=== PATIENT | male | born 1960 | race Caucasian/White ===

== ENCOUNTER 2018-09-07 05:58 | Emergency (ER) | payer OTHER ==
[2018-09-07 06:33] VITALS: BP 112/70; PULSE 72; TEMP 97.8; BMI 27.5
--- NOTE | 2018-09-07 07:17 | PDOC ---
History of Present Illness - General Chief Complaint: Injury Stated Complaint: INJURY,HEAD/LT FT Time Seen by Provider: 09/07/18 07:09 History Source: Patient Exam Limitations: No Limitations - History of Present Illness Initial Comments: 09/07/18 07:19 58M with a PMH of myasthenia gravis and small fiber neuropathy who presents to the ER after having a fall. The patient states that he was trying to go to the bathroom, when he urinated on the floor due to the small fiber neuropathy. When he went back to clean up, he slipped and fell on his head, also injuring his L foot. He denies syncope, but is unsure if he remembers everything. Denies lightheadedness, CP, SOB, palpitations, nausea, vomiting, changes in vision, new numbness, tingling, or weakness. Past History - Past Medical History Allergies/Adverse Reactions: Allergies Allergy/AdvReac Type Severity Reaction Status Date / Time Sulfa (Sulfonamide Allergy Severe Verified 09/07/18 09:09 Antibiotics) Home Medications: Ambulatory Orders Albuterol Sulfate Inhaler - [Ventolin HFA Inhaler -] 2 inh PO HS 02/23/13 GuaiFENesin [Mucinex] 1,200 mg PO BID 02/23/13 Levothyroxine [Synthroid -] 100 mcg PO DAILY 02/23/13 Mometasone/Formoterol [Dulera 200 Mcg/5 Mcg Inhaler] 13 gm IH BID 02/23/13 predniSONE [Deltasone -] 10 mg PO DAILY 02/23/13 Zolpidem Tartrate [Ambien] 10 mg PO HS 02/24/13 Montelukast Na [Singulair -] 10 mg PO HS #60 09/23/13 Cyanocobalamin [Vitamin B12 -] 5,000 mcg PO DAILY 11/19/13 Iron 18 mg PO DAILY 11/19/13 Loratadine [Claritin -] 10 mg PO DAILY 11/19/13 Multivitamins [Multivit ([facility] Formul[facility])] 1 tab PO DAILY 11/19/13 Omeprazole Magnesium [Prilosec (OTC)] 20 mg PO BID 11/19/13 Pyridostigmine [Mestinon Timespan] 180 mg PO BID 05/27/17 Pyridostigmine [Mestinon] 60 mg PO TID 05/27/17 Anemia: No Asthma: Yes Cancer: No Cardiac Disorders: No CVA: No COPD: Yes CHF: No Dementia: No Diabetes: No GI Disorders: Yes (ACID REFLUX) Disorders: No HTN: No Hypercholesterolemia: No Liver Disease: No Seizures: No Thyroid Disease: Yes (HYPOTHYROID) - Surgical History Abdominal Surgery: No Appendectomy: No Cardiac Surgery: No Cholecystectomy: No Lung Surgery: No Neurologic Surgery: No Orthopedic Surgery: Yes (FX LEFT ANKLE WITH HARDWARE) - Suicide/Smoking/Psychosocial Hx Smoking History: Never smoked Have you smoked in the past 12 months: No Hx Alcohol Use: Yes (SOCIALLY) Drug/Substance Use Hx: No Substance Use Type: Alcohol Hx Substance Use Treatment: No Review of Systems - Review of Systems Able to Perform ROS?: Yes Comments:: 09/07/18 07:26 GENERAL/CONSTITUTIONAL: + for fall. No fever or chills. No weakness. HEAD, EYES, EARS, NOSE AND THROAT: No change in vision. No ear pain or discharge. No sore throat. CARDIOVASCULAR: No chest pain, palpitations, or lightheadedness. RESPIRATORY: No cough, wheezing, shortness of breath, or hemoptysis. GASTROINTESTINAL: No abdominal pain, nausea, vomiting, diarrhea, or constipation. GENITOURINARY: No dysuria, frequency, hematuria, or change in urination. MUSCULOSKELETAL: + for L foot pain. No neck or back pain. SKIN: No rash or lesions. NEUROLOGIC: No headache, numbness, tingling, focal weakness, loss of consciousness, or change in strength/sensation. Is the patient limited [place] proficient: No *Physical Exam - Vital Signs Last Vital Signs Temp Pulse Resp BP Pulse Ox 97.8 F 72 20 112/70 96 09/07/18 06:05 09/07/18 06:05 09/07/18 06:05 09/07/18 06:05 09/07/18 06:05 - Physical Exam Comments: 09/07/18 07:26 GENERAL: Well developed, well nourished. Awake and alert. No acute distress. HEENT: Normocephalic. Hearing grossly normal. Moist mucous membranes. PERRLA, EOMI. No conjunctival pallor. Sclera are non-icteric. NECK: Supple. Full ROM. No JVD. CARDIOVASCULAR: Regular rate and rhythm. No murmurs, rubs, or gallops. PULMONARY: No evidence of respiratory distress. Lungs clear to auscultation bilaterally. No wheezing, rales or rhonchi. ABDOMINAL: Soft. Non-tender. Non-distended. MUSCULOSKELETAL: TTP over lateral dorsal foot with mild ecchymosis. Normal range of motion at all joints. EXTREMITIES: No cyanosis. No clubbing. No edema. No calf tenderness or swelling. SKIN: 2cm linear laceration on R occiput. Otherwise, warm and dry. Normal capillary refill. No rashes. No jaundice. NEUROLOGICAL: Alert, awake, appropriate. Cranial nerves 2-12 intact. No deficits to light touch and temperature in face, upper extremities and lower extremities. 5/5 strength in deltoids, biceps, triceps, quadriceps, hamstrings, and gastrocnemius. Normal speech. Gait is normal without ataxia. PSYCHIATRIC: Cooperative. Good eye contact. Appropriate mood and affect. Procedures - Laceration/Wound Repair Posterior Head Wound Length: to 2.5 cm Wound Explored: clean Wound's Depth, Shape: superficial, linear Irrigated w/ Saline: Yes Betadine Prep: No Anesthesia: 1% Lidocaine Amount of Anesthetic (ccs): 2 Wound Debrided: minimal Wound Repaired With: Polvadera (4.) Layer Closure: No Sterile Dressing Applied: Yes Splint Applied: No Sling Applied: No ED Treatment Course - RADIOLOGY Radiology Studies Ordered: Category Date Time Status ANKLE & FOOT-LEFT* [RAD] Stat Radiology 09/07/18 07:16 Ordered Medical Decision Making - Medical Decision Making 09/07/18 07:28 58M with a PMH of small fiber neuropathy and myasthenia gravis presents to the ER after having a slip and fall accident. Will image foot and head to r/o ICH. Will place nirmala and give tetanus as pt is unsure of last tetanus shot. 09/07/18 08:37 Polvadera placed in clean fashion w/ lidocaine. Pt tolerated procedure well. 4 nirmala placed in total. 09/07/18 09:14 Foot XR negative for acute fracture but does show swelling. 09/07/18 09:[address] negative. Pt informed of results and is ambulating with mild ataxia due to injured L foot. Given instructions on RICE and will d/c with PCP f/u and instructions to return in 7-10 days for staple removal. Pt agrees and understands. Pt safe for discharge. *DC/Admit/Observation/Transfer Diagnosis at time of Disposition: Laceration - Discharge Dispostion Disposition: HOME Condition at time of disposition: Stable Decision to Admit order: No - Referrals Referrals: Magdiel Garcia MD [Primary Care Provider] - - Patient Instructions Printed Discharge Instructions: DI for Laceration Repair -- Polvadera Additional Instructions: Your ER visit is not complete until your follow up with your primary care physician. Please follow up with your primary care physician in 1-2 days. Please return in 7-10 days for removal of your nirmala. Please keep the area clean and dry for 24 hours. After 24 hours, gently clean the area with soap and water. Return if you see spreading redness, pus or other drainage, or if you have worsening pain around your cut. Please return to the ER if you have any signs or symptoms of chest pain, shortness of breath, uncontrollable fever, chills, nausea, vomiting, numbness, tingling, or weakness in any part of your body, changes in vision, or slurred speech. Please return to the ER if symptoms persist, worsen, or new symptoms arise. - Post Discharge Activity
[2018-09-07] MEDS ORDERED: DIPHTH,PERTUSS(ACELL),TET 0.5 ML DISP.SYRIN IM ONE ×2 (07:29→08:15)
--- NOTE | 2018-09-07 08:02 | PDOC ---
Attending Attestation - Resident Resident Name: MathewSaeed carmona - ED Attending Attestation I have performed the following: I have examined & evaluated the patient, The case was reviewed & discussed with the resident, I agree w/resident's findings & plan, Exceptions are as noted - HPI HPI: 09/07/18 07:57 58yo male with hx of myasthenia gravis on mestinon and hx of neuropathy with a mechanical fall this AM. Pt states he was heading to the bathroom - states from his neuropathy he has a difficult time getting to the bathroom without losing control of his urine. States this is chronic. States he urinated on the floor. States he stepped in the urine accidentally and slipped, falling backwards and hitting his head. No loc. No neck or back pain. States his left foot twisted underneath him as he fell. States he was able to get up, but has pain to the foot and swelling. Pt denies cp/sob. No abd pain. No n/v/d. No dysuria. No gamble. Pt with a 3cm lac to the posterior scalp - no active bleeding. Tetanus is not utd. - Physicial Exam PE: 09/07/18 08:02 Gen: aaox3, nad head: 3cm lac to posterior scalp, no active bleeding heent: eomi, perrl, mmm neck: supple, no midline ttp, no stepoffs or deformities heart: +s1s2 reg lungs: cta b/l abd: soft, nt/nd, +bs ext: no c/c/e, L foot with swelling over the dorsum of the foot over 3rd, 4th, 5th metatarsals, ecchymosis over toes, no malleolus ttp, ttp along 4th met neuro: at baseline ms, neuro intact, muscle strength 5/5 UE and LE, sensation intact - Medical Decision Making 09/07/18 07:55 a/p: 58yo male with a mechanical slip and fall this am -pt states he has neuropathy and cannot always control his urine-urinated on the floor this am, went to clean it up and slipped and fell on the urine -twisted L foot and ankle, head injury - no loc -pt denies neck or back pain -pt with head lac - about 3cm in length- no active bleeding -will send for xray L foot - poss fx and head ct given closed head injury -pt neuro intact -will monitor and reassess 09/07/18 09:19 no fx on foot xray head ct pending resident repaired lac 09/07/18 09:[address] neg 09/07/18 09:45 pt stable for dc to home
== END 2018-09-07 10:13 | disposition home or self-care (01) ==
LOC: JER 05:58
PROC: 0HQ0XZZ Repair Scalp Skin, External Approach (ICD-10-PCS; principal; 2018-09-07)
PROC: 3E0234Z Introduction of Serum, Toxoid and Vaccine into Muscle, Percutaneous Approach (ICD-10-PCS; 2018-09-07)
DX: S01.01XA Laceration without foreign body of scalp, initial encounter (principal); W01.0XXA Fall on same level from slipping, tripping and stumbling without subsequent striking against object, initial encounter; Y93.E9 Activity, other interior property and clothing maintenance; Y92.012 Bathroom of single-family (private) house as the place of occurrence of the external cause; Y99.8 Other external cause status; G70.00 Myasthenia gravis without (acute) exacerbation; G62.9 Polyneuropathy, unspecified; J45.909 Unspecified asthma, uncomplicated; J44.9 Chronic obstructive pulmonary disease, unspecified; K21.9 Gastro-esophageal reflux disease without esophagitis; E03.9 Hypothyroidism, unspecified
CPT/HCPCS: 70450-TC; 73610-TC-LT-FY; 73630-TC-LT; 90715; 99282-25

== ENCOUNTER 2020-11-10 10:00 | Inpatient (IN) | payer OTHER ==
[2020-11-10 10:19] VITALS: BMI 29.3
[2020-11-10] MEDS ORDERED: DEXAMETHASONE SOD PHOSPHATE 4 MG/1 ML VIAL IVPUSH ONE (12:26)
[2020-11-10] MEDS ORDERED: DEXAMETHASONE SOD PHOSPHATE 4 MG/1 ML VIAL ONE ×2 (12:37→17:58)
[2020-11-10 13:04] LABS: HEMATOCRIT 38.7 % (35.4-49); HEMOGLOBIN 13.5 GM/dL (11.7-16.9); MCH 33.1 pg (25.7-33.7); MCHC 34.9 g/dl (32.0-35.9); MEAN PLT VOLUME 6.3 fl (7.5-11.1); PLATELET COUNT 291 10^3/uL (134-434); RBC 4.07 M/mm3 (4.00-5.60); RDW 14.5 % (11.9-15.9); WHITE BLOOD COUNT 11.5 K/mm3 (4.0-10.0)
[2020-11-10 13:13] LABS: INR 0.98 (0.83-1.09); PROTHROMBIN TIME (PATIENT) 11.9 SEC (9.7-13.0)
[2020-11-10 13:15] LABS: ACTIVATED PTT 23.8 SECONDS (25.2-36.5)
[2020-11-10 13:28] LABS: CHLORIDE 100 mmol/L (98-107); SODIUM 135 mmol/L (136-145)
[2020-11-10 13:30] LABS: ANION GAP 8 MMOL/L (8-16); BLOOD UREA NITROGEN 18.1 mg/dL (7-18); CALCIUM 8.4 mg/dL (8.5-10.1); CO2 26 mmol/L (21-32); GLUCOSE,RANDOM 148 mg/dL (74-106); MAGNESIUM 2.3 mg/dL (1.8-2.4)
[2020-11-10 13:31] LABS: ANISOCYTOSIS 1+; MACROCYTOSIS 1+; PLATELET ESTIMATE NORMAL
[2020-11-10 13:33] LABS: CREATININE 0.7 mg/dL (0.55-1.3); SGOT/AST 17 U/L (15-37); SGPT/ALT 33 U/L (13-61)
[2020-11-10 13:35] LABS: BILIRUBIN,TOTAL 0.5 mg/dL (0.2-1); TOT PROT 7.2 g/dl (6.4-8.2)
[2020-11-10 13:36] LABS: ALK PHOS 89 U/L (45-117)
[2020-11-10 13:39] LABS: N-TERMINAL BNP 27.8 pg/ml (5-125)
[2020-11-10] MEDS ORDERED: ALBUTEROL SO4 0.083% IH SOL 2.5 MG/3 ML VIAL.NEB. NEB PRN (16:30)
[2020-11-10] MEDS ORDERED: ZOLPIDEM TARTRATE 5 MG TABLET PO PRN (16:30)
[2020-11-10] MEDS ORDERED: ALBUTEROL SO4 HFA INHALER IH PRN (16:30)
[2020-11-10] MEDS: SODIUM CHLORIDE 1,000 ML IV SCH (16:35)
[2020-11-10 16:40] LABS: EPI CELLS 2 /uL (0-25.1); HYALINE CASTS 0 /uL (0-3.1); URINE APPEARANCE CLEAR; URINE BACTERIA 1 /uL (0-1359); URINE BILIRUBIN NEGATIVE (NEGATIVE); URINE COLOR YELLOW; URINE GLUCOSE (UA) NEGATIVE (NEGATIVE); URINE KETONE NEGATIVE (NEGATIVE); URINE LEUK ESTERASE NEGATIVE (NEGATIVE); URINE NITRITE NEGATIVE (NEGATIVE); URINE PROTEIN NEGATIVE (NEGATIVE); URINE RBC 16 /uL (0-23.9); URINE UROBILINOGEN 0.2 mg/dL (0.2-1.0); URINE WBC 2 /uL (0-25.8)
[2020-11-10] MEDS: ENOXAPARIN NA (PORCINE) 40 MG/0.4 ML DISP.SYRIN SQ SCH (16:50)
[2020-11-10] MEDS ORDERED: ENOXAPARIN NA (PORCINE) 40 MG/0.4 ML DISP.SYRIN SQ ONE (17:18)
[2020-11-10] MEDS: DEXAMETHASONE SOD PHOSPHATE 4 MG/1 ML VIAL IVPUSH SCH ×2 (18:05→22:35)
[2020-11-10] MEDS: BUDESONIDE/FORMETEROL FUMARATE 80/4.5 mcg INHALER IH SCH (22:35)
[2020-11-10] MEDS: MONTELUKAST NA 10 MG TABLET PO SCH (22:35)
[2020-11-11] MEDS ORDERED: COSYNTROPIN 0.25 MG VIAL IVPUSH ONE (06:00)
[2020-11-11] MEDS: LEVOTHYROXINE NA 75 MCG TABLET (FP) PO SCH (06:03)
[2020-11-11 09:29] LABS: HEMATOCRIT 38.3 % (35.4-49); HEMOGLOBIN 13.7 GM/dL (11.7-16.9); MCHC 35.7 g/dl (32.0-35.9); MEAN CELL VOLUME 95.2 fl (80-96); MEAN PLT VOLUME 6.6 fl (7.5-11.1); PLATELET COUNT 302 10^3/uL (134-434); RBC 4.02 M/mm3 (4.00-5.60); WHITE BLOOD COUNT 9.7 K/mm3 (4.0-10.0)
[2020-11-11] MEDS: LOSARTAN POTASSIUM 50 MG TABLET PO SCH ×2 (10:09→10:14)
[2020-11-11] MEDS: DEXAMETHASONE SOD PHOSPHATE 4 MG/1 ML VIAL IVPUSH SCH ×4 (10:10→21:41)
[2020-11-11] MEDS: PANTOPRAZOLE SODIUM 40 MG VIAL IVPUSH SCH (10:10)
[2020-11-11] MEDS: ENOXAPARIN NA (PORCINE) 40 MG/0.4 ML DISP.SYRIN SQ SCH (10:10)
[2020-11-11] MEDS: ESCITALOPRAM OXALATE 10 MG TABLET PO SCH ×2 (10:10→10:14)
[2020-11-11] MEDS: BUDESONIDE/FORMETEROL FUMARATE 80/4.5 mcg INHALER IH SCH ×2 (10:11→21:41)
[2020-11-11 10:21] LABS: CREATININE 0.6 mg/dL (0.55-1.3)
[2020-11-11 10:22] LABS: ALBUMIN 2.8 g/dl (3.4-5.0)
[2020-11-11] MEDS: ROFLUMILAST 500 MCG TABLET PO SCH (10:22)
[2020-11-11 10:27] LABS: BILIRUBIN,TOTAL 0.5 mg/dL (0.2-1); BLOOD UREA NITROGEN 15.2 mg/dL (7-18); CALCIUM 8.3 mg/dL (8.5-10.1); TOT PROT 6.9 g/dl (6.4-8.2)
[2020-11-11 10:34] LABS: ANISOCYTOSIS 1+; MACROCYTOSIS 0; PLATELET ESTIMATE NORMAL
[2020-11-11] MEDS: SODIUM CHLORIDE 1,000 ML IV SCH ×2 (17:39→21:41)
[2020-11-11] MEDS: MONTELUKAST NA 10 MG TABLET PO SCH (21:40)
[2020-11-12] MEDS: DEXAMETHASONE SOD PHOSPHATE 4 MG/1 ML VIAL IVPUSH SCH ×3 (06:12→21:17)
[2020-11-12] MEDS: LEVOTHYROXINE NA 75 MCG TABLET (FP) PO SCH (06:12)
[2020-11-12] MEDS ORDERED: PT OWN MED DRAWER 7, Y5N ONE (09:12)
[2020-11-12] MEDS: LOSARTAN POTASSIUM 50 MG TABLET PO SCH (09:14)
[2020-11-12] MEDS: ESCITALOPRAM OXALATE 10 MG TABLET PO SCH (09:14)
[2020-11-12] MEDS: ENOXAPARIN NA (PORCINE) 40 MG/0.4 ML DISP.SYRIN SQ SCH (09:14)
[2020-11-12] MEDS: PANTOPRAZOLE SODIUM 40 MG VIAL IVPUSH SCH (09:14)
[2020-11-12] MEDS: ROFLUMILAST 500 MCG TABLET PO SCH (09:14)
[2020-11-12] MEDS: BUDESONIDE/FORMETEROL FUMARATE 80/4.5 mcg INHALER IH SCH ×2 (09:15→21:18)
[2020-11-12 09:34] LABS: BASO % 0.1 % (0-2.0); HEMATOCRIT 37.6 % (35.4-49); HEMOGLOBIN 13.1 GM/dL (11.7-16.9); LYMPH % 4.4 % (8-40); MCH 33.5 pg (25.7-33.7); MCHC 34.8 g/dl (32.0-35.9); MEAN CELL VOLUME 96.3 fl (80-96); MEAN PLT VOLUME 6.5 fl (7.5-11.1); MONO % 4.6 % (3.8-10.2); NEUT % 90.9 % (42.8-82.8); PLATELET COUNT 272 10^3/uL (134-434); RBC 3.91 M/mm3 (4.00-5.60); RDW 14.1 % (11.9-15.9); WHITE BLOOD COUNT 9.3 K/mm3 (4.0-10.0)
[2020-11-12 09:54] LABS: CALCIUM 7.9 mg/dL (8.5-10.1)
[2020-11-12 09:58] LABS: CREATININE 0.6 mg/dL (0.55-1.3)
[2020-11-12] MEDS: ACETAMINOPHEN 325 MG TABLET (FP) PO SCH (15:00)
[2020-11-12] MEDS: diphenhydrAMINE HCL 25 MG CAPSULE (FP) PO SCH (15:01)
[2020-11-12] MEDS: PYRIDOSTIGMINE BROMIDE 60 MG TABLET PO SCH ×3 (15:06→21:17)
[2020-11-12] MEDS: PRO IMMUN GLOB IVPB SCH (15:40)
[2020-11-12] MEDS: [UNRECOGNIZED DRUG - OTHER] IVPB SCH (15:40)
[2020-11-12] MEDS: IMMUN GLOB IVPB SCH (15:40)
[2020-11-12] MEDS: PRO IVPB SCH (15:40)
[2020-11-12] MEDS: IGA IVPB SCH (15:40)
[2020-11-12] MEDS: SODIUM CHLORIDE 1,000 ML IV SCH (17:39)
[2020-11-12] MEDS: MONTELUKAST NA 10 MG TABLET PO SCH (21:18)
[2020-11-13] MEDS: DEXAMETHASONE SOD PHOSPHATE 4 MG/1 ML VIAL IVPUSH SCH ×3 (06:03→21:16)
[2020-11-13] MEDS: LEVOTHYROXINE NA 75 MCG TABLET (FP) PO SCH (06:04)
[2020-11-13] MEDS: SODIUM CHLORIDE 1,000 ML IV SCH ×3 (06:05→22:20)
[2020-11-13 08:28] LABS: HEMATOCRIT 36.6 % (35.4-49); HEMOGLOBIN 12.9 GM/dL (11.7-16.9); MCH 33.5 pg (25.7-33.7); MCHC 35.2 g/dl (32.0-35.9); MEAN CELL VOLUME 95.2 fl (80-96); MEAN PLT VOLUME 6.2 fl (7.5-11.1); PLATELET COUNT 268 10^3/uL (134-434); RBC 3.85 M/mm3 (4.00-5.60); RDW 14.3 % (11.9-15.9); WHITE BLOOD COUNT 9.2 K/mm3 (4.0-10.0)
[2020-11-13 08:47] LABS: CALCIUM 7.9 mg/dL (8.5-10.1)
[2020-11-13 08:48] LABS: BLOOD UREA NITROGEN 15.7 mg/dL (7-18)
[2020-11-13 08:51] LABS: CREATININE 0.8 mg/dL (0.55-1.3)
[2020-11-13] MEDS ORDERED: PT OWN MED DRAWER 7, Y5N ONE ×4 (10:01→20:52)
[2020-11-13] MEDS: ESCITALOPRAM OXALATE 10 MG TABLET PO SCH (10:03)
[2020-11-13] MEDS: ENOXAPARIN NA (PORCINE) 40 MG/0.4 ML DISP.SYRIN SQ SCH (10:03)
[2020-11-13] MEDS: ROFLUMILAST 500 MCG TABLET PO SCH (10:04)
[2020-11-13] MEDS: LOSARTAN POTASSIUM 50 MG TABLET PO SCH (10:04)
[2020-11-13] MEDS: PANTOPRAZOLE SODIUM 40 MG VIAL IVPUSH SCH (10:04)
[2020-11-13] MEDS: PYRIDOSTIGMINE BROMIDE 60 MG TABLET PO SCH ×4 (10:05→21:17)
[2020-11-13] MEDS: BUDESONIDE/FORMETEROL FUMARATE 80/4.5 mcg INHALER IH SCH ×2 (10:05→21:18)
[2020-11-13 11:04] LABS: ANISOCYTOSIS 0; HELMET CELLS 0; HOWELL-JOLLY BODIES 0; MACROCYTOSIS 0; OVALOCYTE 0; PLATELET ESTIMATE NORMAL; ROULEAU 0; SICKELED CELLS 0; TARGET CELLS 0; TEAR DROP CELLS 0; TOXIC GRANULATION 0
[2020-11-13] MEDS: diphenhydrAMINE HCL 25 MG CAPSULE (FP) PO SCH (14:15)
[2020-11-13] MEDS: ACETAMINOPHEN 325 MG TABLET (FP) PO SCH (14:15)
[2020-11-13] MEDS: PRO IMMUN GLOB IVPB SCH (14:54)
[2020-11-13] MEDS: PRO IVPB SCH (14:54)
[2020-11-13] MEDS: IMMUN GLOB IVPB SCH (14:54)
[2020-11-13] MEDS: [UNRECOGNIZED DRUG - OTHER] IVPB SCH (14:54)
[2020-11-13] MEDS: IGA IVPB SCH (14:54)
[2020-11-13] MEDS: MONTELUKAST NA 10 MG TABLET PO SCH (21:18)
[2020-11-13] MEDS: ZOLPIDEM TARTRATE 5 MG TABLET PO PRN (22:20)
[2020-11-14] MEDS: DEXAMETHASONE SOD PHOSPHATE 4 MG/1 ML VIAL IVPUSH SCH ×3 (05:59→21:12)
[2020-11-14] MEDS: LEVOTHYROXINE NA 75 MCG TABLET (FP) PO SCH (06:03)
[2020-11-14 07:41] LABS: BASO % 0.2 % (0-2.0); HEMATOCRIT 34.1 % (35.4-49); HEMOGLOBIN 12.2 GM/dL (11.7-16.9); LYMPH % 5.9 % (8-40); MCH 33.9 pg (25.7-33.7); MCHC 35.7 g/dl (32.0-35.9); MEAN CELL VOLUME 94.8 fl (80-96); MEAN PLT VOLUME 6.5 fl (7.5-11.1); NEUT % 86.9 % (42.8-82.8); PLATELET COUNT 243 10^3/uL (134-434); RBC 3.59 M/mm3 (4.00-5.60); RDW 14.5 % (11.9-15.9); WHITE BLOOD COUNT 8.2 K/mm3 (4.0-10.0)
[2020-11-14 08:07] LABS: BLOOD UREA NITROGEN 12.9 mg/dL (7-18)
[2020-11-14 08:08] LABS: CALCIUM 7.7 mg/dL (8.5-10.1)
[2020-11-14 08:13] LABS: CREATININE 0.6 mg/dL (0.55-1.3)
[2020-11-14] MEDS ORDERED: PT OWN MED DRAWER 7, Y5N ONE ×3 (09:16→21:14)
[2020-11-14] MEDS: ENOXAPARIN NA (PORCINE) 40 MG/0.4 ML DISP.SYRIN SQ SCH (09:19)
[2020-11-14] MEDS: PANTOPRAZOLE SODIUM 40 MG VIAL IVPUSH SCH (09:19)
[2020-11-14] MEDS: LOSARTAN POTASSIUM 50 MG TABLET PO SCH (09:20)
[2020-11-14] MEDS: ESCITALOPRAM OXALATE 10 MG TABLET PO SCH (09:20)
[2020-11-14] MEDS: ROFLUMILAST 500 MCG TABLET PO SCH (09:20)
[2020-11-14] MEDS: PYRIDOSTIGMINE BROMIDE 60 MG TABLET PO SCH ×4 (09:21→21:15)
[2020-11-14] MEDS: BUDESONIDE/FORMETEROL FUMARATE 80/4.5 mcg INHALER IH SCH ×2 (09:21→21:17)
[2020-11-14] MEDS ORDERED: HYDROCHLOROTHIAZIDE 25 MG TABLET (FP) PO SCH (11:00)
[2020-11-14] MEDS: diphenhydrAMINE HCL 25 MG CAPSULE (FP) PO SCH (14:07)
[2020-11-14] MEDS: ACETAMINOPHEN 325 MG TABLET (FP) PO SCH (14:07)
[2020-11-14] MEDS ORDERED: HYDROCHLOROTHIAZIDE 25 MG TABLET (FP) PO ONE (14:45)
[2020-11-14] MEDS ORDERED: diazePAM 2 MG TABLET PO ONE (14:45)
[2020-11-14] MEDS: PRO IMMUN GLOB IVPB SCH (15:12)
[2020-11-14] MEDS: IGA IVPB SCH (15:12)
[2020-11-14] MEDS: PRO IVPB SCH (15:12)
[2020-11-14] MEDS: [UNRECOGNIZED DRUG - OTHER] IVPB SCH (15:12)
[2020-11-14] MEDS: IMMUN GLOB IVPB SCH (15:12)
[2020-11-14] MEDS ORDERED: amLODIPine BESYLATE 5 MG TABLET (FP) PO ONE (17:45)
[2020-11-14] MEDS: ZOLPIDEM TARTRATE 5 MG TABLET PO PRN (21:11)
[2020-11-14] MEDS: MONTELUKAST NA 10 MG TABLET PO SCH (21:11)
[2020-11-15] MEDS: LEVOTHYROXINE NA 75 MCG TABLET (FP) PO SCH (06:02)
[2020-11-15 07:51] LABS: HEMATOCRIT 34.6 % (35.4-49); HEMOGLOBIN 12.5 GM/dL (11.7-16.9); MCH 34.3 pg (25.7-33.7); MEAN CELL VOLUME 95.3 fl (80-96); MEAN PLT VOLUME 6.5 fl (7.5-11.1); PLATELET COUNT 252 10^3/uL (134-434); RBC 3.63 M/mm3 (4.00-5.60); RDW 14.4 % (11.9-15.9); WHITE BLOOD COUNT 10.5 K/mm3 (4.0-10.0)
[2020-11-15 08:40] LABS: CALCIUM 8.1 mg/dL (8.5-10.1)
[2020-11-15 08:41] LABS: ALBUMIN 2.3 g/dl (3.4-5.0)
[2020-11-15 08:44] LABS: CREATININE 0.8 mg/dL (0.55-1.3)
[2020-11-15 08:45] LABS: BILIRUBIN,TOTAL 0.3 mg/dL (0.2-1)
[2020-11-15 08:47] LABS: TOT PROT 9.6 g/dl (6.4-8.2)
[2020-11-15] MEDS ORDERED: PT OWN MED DRAWER 7, Y5N ONE ×2 (09:54→21:09)
[2020-11-15] MEDS: ENOXAPARIN NA (PORCINE) 40 MG/0.4 ML DISP.SYRIN SQ SCH (09:58)
[2020-11-15] MEDS: ROFLUMILAST 500 MCG TABLET PO SCH (09:59)
[2020-11-15] MEDS: LOSARTAN POTASSIUM 50 MG TABLET PO SCH (09:59)
[2020-11-15] MEDS: ESCITALOPRAM OXALATE 10 MG TABLET PO SCH (09:59)
[2020-11-15] MEDS: PANTOPRAZOLE SODIUM 40 MG VIAL IVPUSH SCH (09:59)
[2020-11-15] MEDS: DEXAMETHASONE SOD PHOSPHATE 4 MG/1 ML VIAL IVPUSH SCH ×2 (09:59→21:22)
[2020-11-15] MEDS: HYDROCHLOROTHIAZIDE 25 MG TABLET (FP) PO SCH (09:59)
[2020-11-15] MEDS: PYRIDOSTIGMINE BROMIDE 60 MG TABLET PO SCH ×4 (10:01→21:22)
[2020-11-15] MEDS: BUDESONIDE/FORMETEROL FUMARATE 80/4.5 mcg INHALER IH SCH ×2 (10:30→22:20)
[2020-11-15 11:45] LABS: ANISOCYTOSIS 1+; MACROCYTOSIS 0; PLATELET ESTIMATE NORMAL
[2020-11-15] MEDS: MONTELUKAST NA 10 MG TABLET PO SCH (21:22)
[2020-11-15] MEDS: ZOLPIDEM TARTRATE 5 MG TABLET PO PRN (21:25)
[2020-11-16] MEDS: LEVOTHYROXINE NA 75 MCG TABLET (FP) PO SCH (06:39)
[2020-11-16] MEDS: ACETAMINOPHEN 325 MG TABLET (FP) PO PRN ×2 (08:22→21:20)
[2020-11-16 08:38] LABS: CALCIUM 7.9 mg/dL (8.5-10.1)
[2020-11-16 08:39] LABS: BLOOD UREA NITROGEN 20.2 mg/dL (7-18)
[2020-11-16 08:42] LABS: CREATININE 0.7 mg/dL (0.55-1.3)
[2020-11-16] MEDS ORDERED: PT OWN MED DRAWER 7, Y5N ONE ×4 (09:09→17:47)
[2020-11-16] MEDS: ENOXAPARIN NA (PORCINE) 40 MG/0.4 ML DISP.SYRIN SQ SCH (09:14)
[2020-11-16] MEDS: ESCITALOPRAM OXALATE 10 MG TABLET PO SCH (09:15)
[2020-11-16] MEDS: HYDROCHLOROTHIAZIDE 25 MG TABLET (FP) PO SCH (09:15)
[2020-11-16] MEDS: DEXAMETHASONE SOD PHOSPHATE 4 MG/1 ML VIAL IVPUSH SCH ×2 (09:15→21:20)
[2020-11-16] MEDS: PANTOPRAZOLE SODIUM 40 MG VIAL IVPUSH SCH (09:15)
[2020-11-16] MEDS: PYRIDOSTIGMINE BROMIDE 60 MG TABLET PO SCH ×3 (09:15→17:49)
[2020-11-16] MEDS: LOSARTAN POTASSIUM 50 MG TABLET PO SCH (09:15)
[2020-11-16] MEDS ORDERED: amLODIPine BESYLATE 5 MG TABLET (FP) PO SCH (10:00)
[2020-11-16] MEDS: ROFLUMILAST 500 MCG TABLET PO SCH (10:54)
[2020-11-16] MEDS: BUDESONIDE/FORMETEROL FUMARATE 80/4.5 mcg INHALER IH SCH ×2 (10:54→21:25)
[2020-11-16] MEDS ORDERED: amLODIPine BESYLATE 5 MG TABLET (FP) PO ONE (11:15)
[2020-11-16] MEDS: MONTELUKAST NA 10 MG TABLET PO SCH (21:20)
[2020-11-16] MEDS: ZOLPIDEM TARTRATE 5 MG TABLET PO PRN (21:24)
[2020-11-17] MEDS: LEVOTHYROXINE NA 75 MCG TABLET (FP) PO SCH (06:00)
[2020-11-17 09:13] LABS: CALCIUM 8.3 mg/dL (8.5-10.1)
[2020-11-17 09:14] LABS: BLOOD UREA NITROGEN 15.6 mg/dL (7-18)
[2020-11-17 09:17] LABS: CREATININE 0.7 mg/dL (0.55-1.3)
[2020-11-17] MEDS ORDERED: PT OWN MED DRAWER 7, Y5N ONE ×4 (09:37→20:55)
[2020-11-17] MEDS: DEXAMETHASONE SOD PHOSPHATE 4 MG/1 ML VIAL IVPUSH SCH ×2 (09:39→21:04)
[2020-11-17] MEDS: HYDROCHLOROTHIAZIDE 25 MG TABLET (FP) PO SCH (09:40)
[2020-11-17] MEDS: ESCITALOPRAM OXALATE 10 MG TABLET PO SCH (09:40)
[2020-11-17] MEDS: amLODIPine BESYLATE 10 MG TABLET (FP) PO SCH (09:40)
[2020-11-17] MEDS: ENOXAPARIN NA (PORCINE) 40 MG/0.4 ML DISP.SYRIN SQ SCH (09:40)
[2020-11-17] MEDS: LOSARTAN POTASSIUM 50 MG TABLET PO SCH (09:40)
[2020-11-17] MEDS: PANTOPRAZOLE SODIUM 40 MG VIAL IVPUSH SCH (09:40)
[2020-11-17] MEDS: ROFLUMILAST 500 MCG TABLET PO SCH (09:41)
[2020-11-17] MEDS: PYRIDOSTIGMINE BROMIDE 60 MG TABLET PO SCH ×4 (09:41→21:03)
[2020-11-17] MEDS: BUDESONIDE/FORMETEROL FUMARATE 80/4.5 mcg INHALER IH SCH ×2 (10:14→21:04)
[2020-11-17] MEDS: ACETAMINOPHEN 325 MG TABLET (FP) PO PRN (14:56)
[2020-11-17] MEDS: MONTELUKAST NA 10 MG TABLET PO SCH (21:04)
[2020-11-17] MEDS: ZOLPIDEM TARTRATE 5 MG TABLET PO PRN (21:04)
[2020-11-18] MEDS: LEVOTHYROXINE NA 75 MCG TABLET (FP) PO SCH (06:47)
[2020-11-18] MEDS: PYRIDOSTIGMINE BROMIDE 60 MG TABLET PO SCH ×5 (07:54→22:06)
[2020-11-18] MEDS ORDERED: PT OWN MED DRAWER 7, Y5N ONE ×2 (10:26→21:56)
[2020-11-18] MEDS: amLODIPine BESYLATE 10 MG TABLET (FP) PO SCH (10:37)
[2020-11-18] MEDS: ENOXAPARIN NA (PORCINE) 40 MG/0.4 ML DISP.SYRIN SQ SCH (10:37)
[2020-11-18] MEDS: HYDROCHLOROTHIAZIDE 25 MG TABLET (FP) PO SCH (10:37)
[2020-11-18] MEDS: LOSARTAN POTASSIUM 50 MG TABLET PO SCH (10:37)
[2020-11-18] MEDS: ESCITALOPRAM OXALATE 10 MG TABLET PO SCH (10:38)
[2020-11-18] MEDS: ROFLUMILAST 500 MCG TABLET PO SCH (10:39)
[2020-11-18] MEDS: DEXAMETHASONE SOD PHOSPHATE 4 MG/1 ML VIAL IVPUSH SCH ×2 (10:39→22:04)
[2020-11-18] MEDS: ERGOCALCIFEROL (VIT D2) 50,000 UNIT (1.25 MG) CAPSULE PO SCH (10:40)
[2020-11-18] MEDS: PANTOPRAZOLE SODIUM 40 MG VIAL IVPUSH SCH (10:41)
[2020-11-18] MEDS ORDERED: IPRATROPIUM BR 0.02% 0.5 MG/2.5 ML VIAL.NEB. NEB PRN (10:42)
[2020-11-18] MEDS: BUDESONIDE/FORMETEROL FUMARATE 80/4.5 mcg INHALER IH SCH ×2 (10:42→22:15)
[2020-11-18] MEDS ORDERED: guaiFENesin 200 MG/10 ML 10 ML UNIT-DOSE CUPS PO PRN (10:45)
[2020-11-18] MEDS: ALBUTEROL SO4 2.5/IPRATROPIUM 0.5 INH SOL 3 ML VIAL.NEB. NEB SCH ×3 (11:42→20:34)
[2020-11-18 11:48] LABS: CALCIUM 8.2 mg/dL (8.5-10.1)
[2020-11-18 11:49] LABS: ALBUMIN 2.3 g/dl (3.4-5.0); BLOOD UREA NITROGEN 21.4 mg/dL (7-18)
[2020-11-18 11:52] LABS: CREATININE 0.7 mg/dL (0.55-1.3)
[2020-11-18 11:53] LABS: BILIRUBIN,TOTAL 0.5 mg/dL (0.2-1)
[2020-11-18 11:54] LABS: TOT PROT 8.4 g/dl (6.4-8.2)
[2020-11-18] MEDS: MORPHINE SULFATE 2 MG/ML VIAL IVPUSH PRN ×2 (12:01→22:02)
[2020-11-18] MEDS ORDERED: POTASSIUM CHLORIDE TABS 20 MEQ TABLET.ER (FP) PO ONE (16:28)
[2020-11-18] MEDS: MONTELUKAST NA 10 MG TABLET PO SCH (22:06)
[2020-11-18] MEDS: ZOLPIDEM TARTRATE 5 MG TABLET PO PRN (22:06)
[2020-11-19] MEDS: LEVOTHYROXINE NA 75 MCG TABLET (FP) PO SCH (07:03)
[2020-11-19] MEDS: ALBUTEROL SO4 2.5/IPRATROPIUM 0.5 INH SOL 3 ML VIAL.NEB. NEB SCH ×4 (07:23→20:00)
[2020-11-19 07:48] LABS: HEMATOCRIT 37.7 % (35.4-49); HEMOGLOBIN 13.4 GM/dL (11.7-16.9); MCHC 35.5 g/dl (32.0-35.9); MEAN PLT VOLUME 6.3 fl (7.5-11.1); PLATELET COUNT 190 10^3/uL (134-434); RBC 3.93 M/mm3 (4.00-5.60); RDW 14.5 % (11.9-15.9); WHITE BLOOD COUNT 8.8 K/mm3 (4.0-10.0)
[2020-11-19] MEDS ORDERED: PT OWN MED DRAWER 7, Y5N ONE ×2 (09:35→21:04)
[2020-11-19] MEDS: ENOXAPARIN NA (PORCINE) 40 MG/0.4 ML DISP.SYRIN SQ SCH (09:40)
[2020-11-19] MEDS: PANTOPRAZOLE 40 MG TABLET PO SCH (09:40)
[2020-11-19] MEDS: amLODIPine BESYLATE 10 MG TABLET (FP) PO SCH (09:41)
[2020-11-19] MEDS: ESCITALOPRAM OXALATE 10 MG TABLET PO SCH (09:41)
[2020-11-19] MEDS: ROFLUMILAST 500 MCG TABLET PO SCH (09:41)
[2020-11-19] MEDS: LOSARTAN POTASSIUM 50 MG TABLET PO SCH (09:42)
[2020-11-19] MEDS: HYDROCHLOROTHIAZIDE 25 MG TABLET (FP) PO SCH (09:42)
[2020-11-19] MEDS: BUDESONIDE/FORMETEROL FUMARATE 80/4.5 mcg INHALER IH SCH ×2 (09:42→21:28)
[2020-11-19] MEDS: PYRIDOSTIGMINE BROMIDE 60 MG TABLET PO SCH ×4 (09:42→21:27)
[2020-11-19] MEDS: MORPHINE SULFATE 2 MG/ML VIAL IVPUSH PRN ×3 (09:54→22:16)
[2020-11-19] MEDS ORDERED: DEXAMETHASONE SOD PHOSPHATE 4 MG/1 ML VIAL IVPUSH SCH (10:00)
[2020-11-19 10:50] LABS: ANISOCYTOSIS 1+; MACROCYTOSIS 0; OVALOCYTE 1+; PLATELET ESTIMATE NORMAL
[2020-11-19] MEDS: predniSONE 20 MG TABLET (UD) PO SCH (11:39)
[2020-11-19] MEDS: ACETAMINOPHEN 325 MG TABLET (FP) PO PRN (21:27)
[2020-11-19] MEDS: MONTELUKAST NA 10 MG TABLET PO SCH (21:28)
[2020-11-19] MEDS ORDERED: ZOLPIDEM TARTRATE 5 MG TABLET PO ONE (22:00)
[2020-11-20] MEDS ORDERED: POTASSIUM CHLORIDE ORAL LIQUID 20 MEQ/15 ML PO ONE (04:47)
[2020-11-20] MEDS: LEVOTHYROXINE NA 75 MCG TABLET (FP) PO SCH (06:08)
[2020-11-20] MEDS: GABAPENTIN 300 MG CAPSULE PO SCH ×3 (06:08→21:52)
[2020-11-20] MEDS: ACETAMINOPHEN 325 MG TABLET (FP) PO PRN (06:09)
[2020-11-20] MEDS: ALBUTEROL SO4 2.5/IPRATROPIUM 0.5 INH SOL 3 ML VIAL.NEB. NEB SCH ×4 (07:40→20:00)
[2020-11-20] MEDS ORDERED: PT OWN MED DRAWER 7, Y5N ONE (09:02)
[2020-11-20] MEDS: BACLOFEN 10 MG TABLET (FP) PO SCH ×3 (09:04→21:52)
[2020-11-20] MEDS: predniSONE 20 MG TABLET (UD) PO SCH (09:09)
[2020-11-20] MEDS: ESCITALOPRAM OXALATE 10 MG TABLET PO SCH (09:10)
[2020-11-20] MEDS: PANTOPRAZOLE 40 MG TABLET PO SCH (09:10)
[2020-11-20] MEDS: amLODIPine BESYLATE 10 MG TABLET (FP) PO SCH (09:10)
[2020-11-20] MEDS: LOSARTAN POTASSIUM 50 MG TABLET PO SCH (09:10)
[2020-11-20] MEDS: PYRIDOSTIGMINE BROMIDE 60 MG TABLET PO SCH ×4 (09:11→21:47)
[2020-11-20] MEDS: BUDESONIDE/FORMETEROL FUMARATE 80/4.5 mcg INHALER IH SCH ×2 (09:11→21:52)
[2020-11-20] MEDS: ROFLUMILAST 500 MCG TABLET PO SCH (09:11)
[2020-11-20] MEDS: ENOXAPARIN NA (PORCINE) 40 MG/0.4 ML DISP.SYRIN SQ SCH (09:11)
[2020-11-20] MEDS ORDERED: MORPHINE SULFATE 2 MG/ML VIAL IVPUSH ONE (09:15)
[2020-11-20] MEDS: POLYETHYLENE GLYCOL (HEALTHYLAX) 3350 17 GM PACKET PO SCH (10:58)
[2020-11-20 11:56] LABS: HEMATOCRIT 37.4 % (35.4-49); HEMOGLOBIN 13.1 GM/dL (11.7-16.9); MCH 33.5 pg (25.7-33.7); MCHC 34.9 g/dl (32.0-35.9); MEAN CELL VOLUME 95.9 fl (80-96); MEAN PLT VOLUME 6.5 fl (7.5-11.1); PLATELET COUNT 164 10^3/uL (134-434); RDW 14.8 % (11.9-15.9); WHITE BLOOD COUNT 9.6 K/mm3 (4.0-10.0)
[2020-11-20 12:19] LABS: CREATININE 0.6 mg/dL (0.55-1.3)
[2020-11-20 12:20] LABS: ANISOCYTOSIS 0; MACROCYTOSIS 0; PLATELET ESTIMATE NORMAL
[2020-11-20] MEDS ORDERED: BACLOFEN 10 MG TABLET (FP) PO SCH (14:00)
[2020-11-20] MEDS: oxyCODONE HCL 5 MG TABLET PO PRN (14:09)
[2020-11-20] MEDS ORDERED: CYCLOBENZAPRINE HCL 5 MG TABLET PO PRN (17:04)
[2020-11-20] MEDS ORDERED: ASPIRIN 325 MG TABLET PO ONE (18:30)
[2020-11-20] MEDS: ZOLPIDEM TARTRATE 5 MG TABLET PO PRN (21:52)
[2020-11-20] MEDS: MONTELUKAST NA 10 MG TABLET PO SCH (21:52)
[2020-11-21] MEDS: LEVOTHYROXINE NA 75 MCG TABLET (FP) PO SCH (06:07)
[2020-11-21] MEDS: GABAPENTIN 300 MG CAPSULE PO SCH ×3 (06:07→21:31)
[2020-11-21] MEDS: ALBUTEROL SO4 2.5/IPRATROPIUM 0.5 INH SOL 3 ML VIAL.NEB. NEB SCH ×4 (07:32→20:35)
[2020-11-21] MEDS: ROFLUMILAST 500 MCG TABLET PO SCH ×2 (08:56→09:14)
[2020-11-21] MEDS: oxyCODONE HCL 5 MG TABLET PO PRN ×2 (08:57→15:16)
[2020-11-21] MEDS: predniSONE 20 MG TABLET (UD) PO SCH ×2 (08:58→09:14)
[2020-11-21] MEDS: LOSARTAN POTASSIUM 50 MG TABLET PO SCH ×2 (08:58→09:14)
[2020-11-21] MEDS: PYRIDOSTIGMINE BROMIDE 60 MG TABLET PO SCH ×4 (08:59→21:35)
[2020-11-21] MEDS: ENOXAPARIN NA (PORCINE) 40 MG/0.4 ML DISP.SYRIN SQ SCH (09:00)
[2020-11-21] MEDS: ESCITALOPRAM OXALATE 10 MG TABLET PO SCH (09:01)
[2020-11-21] MEDS: BACLOFEN 10 MG TABLET (FP) PO SCH ×2 (09:02→21:31)
[2020-11-21] MEDS: amLODIPine BESYLATE 10 MG TABLET (FP) PO SCH (09:02)
[2020-11-21] MEDS: ASPIRIN COATED 81 MG TABLET.EC PO SCH (09:03)
[2020-11-21] MEDS: PANTOPRAZOLE 40 MG TABLET PO SCH (09:05)
[2020-11-21] MEDS: POLYETHYLENE GLYCOL (HEALTHYLAX) 3350 17 GM PACKET PO SCH (09:05)
[2020-11-21] MEDS: BUDESONIDE/FORMETEROL FUMARATE 80/4.5 mcg INHALER IH SCH ×2 (09:05→21:41)
[2020-11-21] MEDS ORDERED: CYCLOBENZAPRINE HCL 10 MG TABLET (FP) PO ONE (09:17)
[2020-11-21 09:20] LABS: ALBUMIN 2.3 g/dl (3.4-5.0); BLOOD UREA NITROGEN 18.6 mg/dL (7-18); CALCIUM 7.8 mg/dL (8.5-10.1); MAGNESIUM 1.8 mg/dL (1.8-2.4)
[2020-11-21 09:23] LABS: CREATININE 0.5 mg/dL (0.55-1.3); PHOSPHOROUS 2.4 mg/dL (2.5-4.9)
[2020-11-21 09:24] LABS: BILIRUBIN,TOTAL 0.6 mg/dL (0.2-1)
[2020-11-21 09:25] LABS: TOT PROT 7.6 g/dl (6.4-8.2)
[2020-11-21] MEDS ORDERED: MORPHINE SULFATE 2 MG/ML VIAL ONE (09:28)
[2020-11-21] MEDS ORDERED: MORPHINE SULFATE 2 MG/ML VIAL IVPUSH ONE (09:45)
[2020-11-21] MEDS ORDERED: Methylnaltrexone Bromide 12 MG/0.6 ML KIT SQ PRN (11:22)
[2020-11-21] MEDS ORDERED: HYDROmorphone HCl 2 MG/ML VIAL ONE ×2 (12:47→13:07)
[2020-11-21] MEDS ORDERED: HYDROmorphone HCL CARPU-JECT 2 MG/1 ML DISP.SYRIN IVPUSH ONE (13:06)
[2020-11-21] MEDS: HYDROmorphone HCl 2 MG/ML VIAL IVPUSH PRN (13:45)
[2020-11-21] MEDS: ACETAMINOPHEN 325 MG TABLET (FP) PO PRN (15:16)
[2020-11-21] MEDS: MONTELUKAST NA 10 MG TABLET PO SCH (21:31)
[2020-11-21] MEDS: CYCLOBENZAPRINE HCL 10 MG TABLET (FP) PO SCH (21:31)
[2020-11-21] MEDS: ZOLPIDEM TARTRATE 5 MG TABLET PO PRN (21:31)
[2020-11-21] MEDS: METOPROLOL TARTRATE 25 MG TABLET (FP) PO SCH (21:31)
[2020-11-22] MEDS: GABAPENTIN 300 MG CAPSULE PO SCH ×3 (06:24→21:08)
[2020-11-22] MEDS: LEVOTHYROXINE NA 75 MCG TABLET (FP) PO SCH (06:25)
[2020-11-22] MEDS: HYDROmorphone HCl 2 MG/ML VIAL IVPUSH PRN (06:30)
[2020-11-22] MEDS: METOPROLOL TARTRATE 25 MG TABLET (FP) PO SCH ×3 (08:15→21:08)
[2020-11-22] MEDS: amLODIPine BESYLATE 10 MG TABLET (FP) PO SCH ×2 (08:15→09:02)
[2020-11-22] MEDS: predniSONE 20 MG TABLET (UD) PO SCH ×2 (08:15→09:01)
[2020-11-22] MEDS: BACLOFEN 10 MG TABLET (FP) PO SCH ×3 (08:15→21:08)
[2020-11-22] MEDS: PYRIDOSTIGMINE BROMIDE 60 MG TABLET PO SCH ×5 (08:16→21:09)
[2020-11-22] MEDS: CYCLOBENZAPRINE HCL 10 MG TABLET (FP) PO SCH ×3 (08:16→21:08)
[2020-11-22] MEDS: ESCITALOPRAM OXALATE 10 MG TABLET PO SCH ×2 (08:16→09:02)
[2020-11-22] MEDS: ASPIRIN COATED 81 MG TABLET.EC PO SCH ×2 (08:16→09:02)
[2020-11-22] MEDS: oxyCODONE HCL 5 MG TABLET PO PRN (08:17)
[2020-11-22] MEDS: ROFLUMILAST 500 MCG TABLET PO SCH ×2 (08:17→09:01)
[2020-11-22] MEDS: LOSARTAN POTASSIUM 50 MG TABLET PO SCH ×2 (08:18→09:01)
[2020-11-22] MEDS ORDERED: PT OWN MED DRAWER 7, Y5N ONE (08:33)
[2020-11-22] MEDS: ALBUTEROL SO4 2.5/IPRATROPIUM 0.5 INH SOL 3 ML VIAL.NEB. NEB SCH ×4 (08:55→20:22)
[2020-11-22] MEDS: ENOXAPARIN NA (PORCINE) 40 MG/0.4 ML DISP.SYRIN SQ SCH (09:02)
[2020-11-22] MEDS: POLYETHYLENE GLYCOL (HEALTHYLAX) 3350 17 GM PACKET PO SCH (09:02)
[2020-11-22] MEDS: BUDESONIDE/FORMETEROL FUMARATE 80/4.5 mcg INHALER IH SCH ×2 (09:02→21:10)
[2020-11-22] MEDS: PANTOPRAZOLE 40 MG TABLET PO SCH (09:02)
[2020-11-22] MEDS ORDERED: HYDROmorphone HCL CARPU-JECT 2 MG/1 ML DISP.SYRIN IVPB PRN (10:02)
[2020-11-22] MEDS ORDERED: HYDROmorphone HCl 2 MG/ML VIAL ONE (10:10)
[2020-11-22] MEDS ORDERED: oxyCODONE HCL 5 MG TABLET PO PRN (10:25)
[2020-11-22 14:16] LABS: CALCIUM 8.3 mg/dL (8.5-10.1)
[2020-11-22 14:20] LABS: CREATININE 0.8 mg/dL (0.55-1.3)
[2020-11-22] MEDS: HYDROmorphone HCl 2 MG/ML VIAL IVPB PRN (19:46)
[2020-11-22] MEDS: MONTELUKAST NA 10 MG TABLET PO SCH (21:08)
[2020-11-22] MEDS: ZOLPIDEM TARTRATE 5 MG TABLET PO PRN (21:08)
[2020-11-23] MEDS: GABAPENTIN 300 MG CAPSULE PO SCH ×3 (06:50→21:17)
[2020-11-23] MEDS: LEVOTHYROXINE NA 75 MCG TABLET (FP) PO SCH (06:50)
[2020-11-23] MEDS: ALBUTEROL SO4 2.5/IPRATROPIUM 0.5 INH SOL 3 ML VIAL.NEB. NEB SCH (08:25)
[2020-11-23] MEDS ORDERED: PT OWN MED DRAWER 7, Y5N ONE (09:51)
[2020-11-23] MEDS: HYDROmorphone HCl 2 MG/ML VIAL IVPB PRN (09:58)
[2020-11-23] MEDS: BACLOFEN 10 MG TABLET (FP) PO SCH ×2 (09:59→21:19)
[2020-11-23] MEDS: PANTOPRAZOLE 40 MG TABLET PO SCH (09:59)
[2020-11-23] MEDS: ASPIRIN COATED 81 MG TABLET.EC PO SCH (09:59)
[2020-11-23] MEDS: LOSARTAN POTASSIUM 50 MG TABLET PO SCH (09:59)
[2020-11-23] MEDS: predniSONE 20 MG TABLET (UD) PO SCH (09:59)
[2020-11-23] MEDS: POLYETHYLENE GLYCOL (HEALTHYLAX) 3350 17 GM PACKET PO SCH (10:00)
[2020-11-23] MEDS: ROFLUMILAST 500 MCG TABLET PO SCH (10:00)
[2020-11-23] MEDS: PYRIDOSTIGMINE BROMIDE 60 MG TABLET PO SCH ×4 (10:00→21:19)
[2020-11-23] MEDS: amLODIPine BESYLATE 10 MG TABLET (FP) PO SCH (10:00)
[2020-11-23] MEDS: ENOXAPARIN NA (PORCINE) 40 MG/0.4 ML DISP.SYRIN SQ SCH (10:00)
[2020-11-23] MEDS: METOPROLOL TARTRATE 25 MG TABLET (FP) PO SCH ×2 (10:00→21:19)
[2020-11-23] MEDS: ESCITALOPRAM OXALATE 10 MG TABLET PO SCH (10:00)
[2020-11-23] MEDS: CYCLOBENZAPRINE HCL 10 MG TABLET (FP) PO SCH (10:00)
[2020-11-23] MEDS: BUDESONIDE/FORMETEROL FUMARATE 80/4.5 mcg INHALER IH SCH ×2 (10:01→21:27)
[2020-11-23] MEDS ORDERED: KETOROLAC TROMETHAMINE 15 MG/ML VIAL IVPUSH ONE (13:30)
[2020-11-23] MEDS ORDERED: IOHEXOL 180 MG/1 ML ML IJ ONE (14:21)
[2020-11-23] MEDS ORDERED: BUPIVACAINE HCL/PF 0.75% 10 ML VIAL NR ONE (14:22)
[2020-11-23] MEDS ORDERED: LIDOCAINE HCL 1% PRESERVATIVE FREE - 30ML VIAL INF ONE (14:22)
[2020-11-23] MEDS ORDERED: ACETAMINOPHEN 325 MG TABLET (FP) PO STA (15:13)
[2020-11-23] MEDS ORDERED: BACLOFEN 10 MG TABLET (FP) PO ONE (15:51)
[2020-11-23] MEDS: oxyCODONE HCL 5 MG TABLET PO SCH ×2 (17:39→21:18)
[2020-11-23] MEDS: MONTELUKAST NA 10 MG TABLET PO SCH (21:18)
[2020-11-23] MEDS: ACETAMINOPHEN 500 MG TABLET (FP) PO SCH (21:20)
[2020-11-24] MEDS: oxyCODONE HCL 5 MG TABLET PO SCH ×2 (05:27→12:07)
[2020-11-24] MEDS: GABAPENTIN 300 MG CAPSULE PO SCH ×3 (05:27→22:36)
[2020-11-24] MEDS: ACETAMINOPHEN 500 MG TABLET (FP) PO SCH ×4 (05:28→22:37)
[2020-11-24] MEDS: BACLOFEN 10 MG TABLET (FP) PO SCH ×3 (05:29→22:36)
[2020-11-24] MEDS: LEVOTHYROXINE NA 75 MCG TABLET (FP) PO SCH (06:01)
[2020-11-24] MEDS ORDERED: HYDROmorphone HCl 2 MG/ML VIAL ONE (08:23)
[2020-11-24] MEDS ORDERED: HYDROmorphone HCl 2 MG/ML VIAL IVPUSH ONE (09:00)
[2020-11-24 09:22] LABS: BLOOD UREA NITROGEN 27.3 mg/dL (7-18); CALCIUM 7.8 mg/dL (8.5-10.1)
[2020-11-24 09:25] LABS: CREATININE 0.6 mg/dL (0.55-1.3)
[2020-11-24] MEDS: ESCITALOPRAM OXALATE 10 MG TABLET PO SCH (11:37)
[2020-11-24] MEDS: METOPROLOL TARTRATE 25 MG TABLET (FP) PO SCH ×2 (11:37→22:36)
[2020-11-24] MEDS: LOSARTAN POTASSIUM 50 MG TABLET PO SCH (11:37)
[2020-11-24] MEDS: ASPIRIN COATED 81 MG TABLET.EC PO SCH (11:37)
[2020-11-24] MEDS: PANTOPRAZOLE 40 MG TABLET PO SCH (11:37)
[2020-11-24] MEDS: predniSONE 20 MG TABLET (UD) PO SCH (11:38)
[2020-11-24] MEDS: POLYETHYLENE GLYCOL (HEALTHYLAX) 3350 17 GM PACKET PO SCH (11:38)
[2020-11-24] MEDS: ROFLUMILAST 500 MCG TABLET PO SCH (11:38)
[2020-11-24] MEDS: LIDOCAINE 5% TOPICAL PATCH TP SCH (11:38)
[2020-11-24] MEDS: BUDESONIDE/FORMETEROL FUMARATE 80/4.5 mcg INHALER IH SCH ×2 (11:40→22:37)
[2020-11-24] MEDS: PYRIDOSTIGMINE BROMIDE 60 MG TABLET PO SCH ×4 (11:40→22:38)
[2020-11-24] MEDS: oxyCODONE HCL 5 MG TABLET PO PRN ×2 (14:49→22:36)
[2020-11-24] MEDS ORDERED: LIDOCAINE PATCH REMOVAL MC SCH (22:00)
[2020-11-24] MEDS: MONTELUKAST NA 10 MG TABLET PO SCH (22:36)
[2020-11-25 06:24] VITALS: TEMP 98.5
[2020-11-25] MEDS: GABAPENTIN 300 MG CAPSULE PO SCH ×2 (06:26→14:52)
[2020-11-25] MEDS: BACLOFEN 10 MG TABLET (FP) PO SCH ×2 (06:27→14:52)
[2020-11-25] MEDS: ACETAMINOPHEN 500 MG TABLET (FP) PO SCH ×2 (06:27→14:52)
[2020-11-25] MEDS: LEVOTHYROXINE NA 75 MCG TABLET (FP) PO SCH (06:27)
[2020-11-25] MEDS: oxyCODONE HCL 5 MG TABLET PO PRN (06:29)
[2020-11-25] MEDS ORDERED: PT OWN MED DRAWER 7, Y5N ONE ×2 (09:08→14:50)
[2020-11-25] MEDS: ASPIRIN COATED 81 MG TABLET.EC PO SCH (09:14)
[2020-11-25] MEDS: predniSONE 20 MG TABLET (UD) PO SCH (09:14)
[2020-11-25] MEDS: ESCITALOPRAM OXALATE 10 MG TABLET PO SCH (09:14)
[2020-11-25] MEDS: PANTOPRAZOLE 40 MG TABLET PO SCH (09:15)
[2020-11-25] MEDS: METOPROLOL TARTRATE 25 MG TABLET (FP) PO SCH (09:15)
[2020-11-25] MEDS: ROFLUMILAST 500 MCG TABLET PO SCH (09:15)
[2020-11-25] MEDS: LIDOCAINE 5% TOPICAL PATCH TP SCH (09:15)
[2020-11-25] MEDS: ERGOCALCIFEROL (VIT D2) 50,000 UNIT (1.25 MG) CAPSULE PO SCH (09:15)
[2020-11-25] MEDS: LOSARTAN POTASSIUM 50 MG TABLET PO SCH (09:15)
[2020-11-25] MEDS: BUDESONIDE/FORMETEROL FUMARATE 80/4.5 mcg INHALER IH SCH (09:16)
[2020-11-25] MEDS: POLYETHYLENE GLYCOL (HEALTHYLAX) 3350 17 GM PACKET PO SCH (09:16)
[2020-11-25] MEDS: PYRIDOSTIGMINE BROMIDE 60 MG TABLET PO SCH ×2 (09:16→14:53)
[2020-11-25 12:07] VITALS: BP 113/69; PULSE 94
[2020-11-26] MEDS ORDERED: amLODIPine BESYLATE 5 MG TABLET (FP) PO SCH (10:00)
== END 2020-11-25 16:10 | disposition home or self-care (01) | DRG 644 ==
LOC: JER 10:00 → JERBED 12:22 → J6S 20:15 → J4W 11-20 16:39 → J4S 11-25 10:33 → J4W 11-25 10:35
PROVIDERS: ADMIT Family Medicine; ATTEND Family Medicine
PROC: 3E0R33Z Introduction of Anti-inflammatory into Spinal Canal, Percutaneous Approach (ICD-10-PCS; principal; 2020-11-23 12:30)
DX: E27.1 Primary adrenocortical insufficiency (principal); D80.1 Nonfamilial hypogammaglobulinemia; J84.9 Interstitial pulmonary disease, unspecified; M48.56XA Collapsed vertebra, not elsewhere classified, lumbar region, initial encounter for fracture; M48.54XA Collapsed vertebra, not elsewhere classified, thoracic region, initial encounter for fracture; E03.9 Hypothyroidism, unspecified; I10 Essential (primary) hypertension; G70.00 Myasthenia gravis without (acute) exacerbation; R26.81 Unsteadiness on feet; K21.9 Gastro-esophageal reflux disease without esophagitis; G62.9 Polyneuropathy, unspecified; J44.9 Chronic obstructive pulmonary disease, unspecified; F32.9 Major depressive disorder, single episode, unspecified; G47.00 Insomnia, unspecified; R31.9 Hematuria, unspecified; G47.33 Obstructive sleep apnea (adult) (pediatric); M54.5 Low back pain; G72.9 Myopathy, unspecified; D64.9 Anemia, unspecified; J45.40 Moderate persistent asthma, uncomplicated; M47.894 Other spondylosis, thoracic region
CPT/HCPCS: 36415; 70450-TC; 70553-TC; 71045-TC-FY; 71250-TC; 72157-TC; 72158-TC; 76000-TC-FY; 80048; 80053; 81003; 82024; 82533; 82550; 82634; 83735; 83880; 84100; 84436; 84443; 84484; 85025; 85610; 85730; 87086; 93005; 93010; 93306-TC; 94640; 94660; 94761; 97116-GP; 97161-GP; 99285-25; C9803; J0475; J0834; J1459; U0003; U0005

== ENCOUNTER 2021-03-23 13:54 | Inpatient (IN) | payer OTHER ==
[2021-03-23] MEDS ORDERED: AZITHROMYCIN 250 MG TABLET PO ONE (15:08)
[2021-03-23] MEDS ORDERED: ALBUTEROL SO4 2.5/IPRATROPIUM 0.5 INH SOL 3 ML VIAL.NEB. NEB ONE ×3 (15:08→15:57)
[2021-03-23] MEDS ORDERED: CEFTRIAXONE 1 GM in DEXTROSE 5%-WATER - 50 ML IVPB ONE (15:09)
[2021-03-23] MEDS ORDERED: CEFTRIAXONE 1 GM/50 ML BAG ONE (15:32)
[2021-03-23] MEDS ORDERED: AZITHROMYCIN 250 MG TABLET ONE (15:32)
[2021-03-23] MEDS ORDERED: CEFTRIAXONE 1,000 MG in DEXTROSE 5%-WATER - 50 ML IVPB ONE (16:13)
[2021-03-23 16:24] LABS: BASO % 0.1 % (0-2.0); HEMATOCRIT 38.6 % (35.4-49); HEMOGLOBIN 13.3 GM/dL (11.7-16.9); LYMPH % 8.2 % (8-40); MCH 31.1 pg (25.7-33.7); MCHC 34.4 g/dl (32.0-35.9); MEAN CELL VOLUME 90.4 fl (80-96); MEAN PLT VOLUME 6.8 fl (7.5-11.1); MONO % 5.7 % (3.8-10.2); PLATELET COUNT 294 10^3/uL (134-434); RBC 4.27 M/mm3 (4.00-5.60); RDW 14.6 % (11.9-15.9); WHITE BLOOD COUNT 5.8 K/mm3 (4.0-10.0)
[2021-03-23 16:53] LABS: CHLORIDE 100 mmol/L (98-107); SODIUM 135 mmol/L (136-145)
[2021-03-23 16:55] LABS: BLOOD UREA NITROGEN 17.6 mg/dL (7-18); CALCIUM 8.5 mg/dL (8.5-10.1)
[2021-03-23 16:56] LABS: ALBUMIN 3.2 g/dl (3.4-5.0); ANION GAP 9 MMOL/L (8-16); CO2 27 mmol/L (21-32); GLUCOSE,RANDOM 106 mg/dL (74-106)
[2021-03-23 16:58] LABS: CREATININE 1.2 mg/dL (0.55-1.3)
[2021-03-23 16:59] LABS: SGOT/AST 33 U/L (15-37); SGPT/ALT 44 U/L (13-61)
[2021-03-23 17:00] LABS: BILIRUBIN,TOTAL 0.2 mg/dL (0.2-1)
[2021-03-23 17:01] LABS: ALK PHOS 79 U/L (45-117)
[2021-03-23 17:02] LABS: LDH 328 U/L (87-246)
[2021-03-23] MEDS ORDERED: LACTATED RINGERS SOLUTION 1000 ML INFUS.BAG IV ONE (17:07)
[2021-03-23 20:25] LABS: ARTERIAL BLOOD GAS BASE EXCESS 4.7 mmol/L (-2-2); ARTERIAL BLOOD GAS PO2 83.4 mmHg (80-100); ARTERIAL BLOOD GAS pH 7.499 (7.350-7.450)
[2021-03-23 20:26] LABS: ALLENS TEST POSITIVE
[2021-03-23] MEDS ORDERED: PYRIDOSTIGMINE BROMIDE 60 MG TABLET PO ONE (21:00)
[2021-03-23] MEDS ORDERED: SODIUM CHLORIDE 1,000 ML IV SCH (21:30)
[2021-03-23] MEDS ORDERED: ALBUTEROL SO4 HFA INHALER IH PRN (21:44)
[2021-03-23] MEDS ORDERED: ALBUTEROL SO4 2.5/IPRATROPIUM 0.5 INH SOL 3 ML VIAL.NEB. NEB PRN (22:06)
[2021-03-23] MEDS: MONTELUKAST NA 10 MG TABLET PO SCH (22:14)
[2021-03-23] MEDS: ZOLPIDEM TARTRATE 5 MG TABLET PO PRN (22:38)
[2021-03-23] MEDS: VERAPAMIL HCL 80 MG TABLET PO ONE (22:41)
[2021-03-23 23:06] VITALS: BMI 28.4
[2021-03-24] MEDS ORDERED: REMDESIVIR 200 MG in SODIUM CHLORIDE 250 ML IVPB ONE
[2021-03-24] MEDS ORDERED: PYRIDOSTIGMINE BROMIDE 60 MG TABLET PO ONE (02:00)
[2021-03-24] MEDS: LEVOTHYROXINE NA 100 MCG TABLET (FP) PO SCH (06:20)
[2021-03-24 09:11] LABS: BASO % 0.2 % (0-2.0); EOS % 0.1 % (0-4.5); HEMATOCRIT 37.2 % (35.4-49); HEMOGLOBIN 12.4 GM/dL (11.7-16.9); LYMPH % 17.5 % (8-40); MCH 30.4 pg (25.7-33.7); MCHC 33.5 g/dl (32.0-35.9); MEAN CELL VOLUME 90.9 fl (80-96); MEAN PLT VOLUME 7.1 fl (7.5-11.1); NEUT % 78.2 % (42.8-82.8); PLATELET COUNT 287 10^3/uL (134-434); RBC 4.09 M/mm3 (4.00-5.60); RDW 14.6 % (11.9-15.9); WHITE BLOOD COUNT 4.8 K/mm3 (4.0-10.0)
[2021-03-24 09:23] LABS: CHLORIDE 101 mmol/L (98-107); SODIUM 136 mmol/L (136-145)
[2021-03-24 09:31] LABS: ALBUMIN 2.7 g/dl (3.4-5.0); BLOOD UREA NITROGEN 14.8 mg/dL (7-18); GLUCOSE,RANDOM 95 mg/dL (74-106); SGPT/ALT 37 U/L (13-61)
[2021-03-24 09:32] LABS: BILIRUBIN,TOTAL 0.2 mg/dL (0.2-1); CO2 24 mmol/L (21-32); CREATININE 0.7 mg/dL (0.55-1.3)
[2021-03-24 09:33] LABS: CALCIUM 7.5 mg/dL (8.5-10.1)
[2021-03-24 09:34] LABS: ALK PHOS 62 U/L (45-117); SGOT/AST 30 U/L (15-37)
[2021-03-24 09:35] LABS: ANION GAP 11 MMOL/L (8-16)
[2021-03-24] MEDS ORDERED: predniSONE 20 MG TABLET (UD) PO SCH (10:00)
[2021-03-24] MEDS ORDERED: PATIENT'S OWN MEDICATION (NON-FORMULARY) (Iron [Iron] 18 MG Tablet) PO SCH (10:00)
[2021-03-24] MEDS ORDERED: traMADol HCL 50 MG TABLET PO PRN (10:00)
[2021-03-24] MEDS ORDERED: metoPROLOL SUCCINATE 25 MG TAB.SR.24H (FP) PO SCH (10:00)
[2021-03-24] MEDS: CYANOCOBALAMIN 1,000 MCG TABLET (FP) PO SCH (10:19)
[2021-03-24] MEDS: LOSARTAN POTASSIUM 50 MG TABLET PO SCH (10:20)
[2021-03-24] MEDS: ESCITALOPRAM OXALATE 10 MG TABLET PO SCH (10:20)
[2021-03-24] MEDS: PANTOPRAZOLE 40 MG TABLET PO SCH (10:20)
[2021-03-24] MEDS: MULTIVITAMINS (DAILY MVI) TABLET (FP) PO SCH (10:20)
[2021-03-24] MEDS: guaiFENesin 600 MG TABLET.ER (FP) PO SCH ×2 (10:20→22:04)
[2021-03-24] MEDS: VERAPAMIL HCL 80 MG TABLET PO ONE (10:21)
[2021-03-24] MEDS: VERAPAMIL HCL 120 MG E.R. TABLET PO SCH (10:21)
[2021-03-24] MEDS: BUDESONIDE/FORMETEROL FUMARATE 160/4.5 mcg INHALER IH SCH ×2 (10:22→22:06)
[2021-03-24] MEDS: ACETAMINOPHEN 500 MG TABLET (FP) PO PRN ×2 (10:43→22:05)
[2021-03-24] MEDS ORDERED: POTASSIUM CHLORIDE ORAL LIQUID 20 MEQ/15 ML PO ONE (10:44)
[2021-03-24] MEDS ORDERED: ACETAMINOPHEN 325 MG TABLET (FP) PO PRN (10:45)
[2021-03-24] MEDS: DEXAMETHASONE SOD PHOSPHATE 10 MG/1 ML VIAL IVPUSH SCH (10:47)
[2021-03-24] MEDS: PYRIDOSTIGMINE BROMIDE 60 MG TABLET PO SCH ×3 (12:02→22:05)
[2021-03-24] MEDS: ALBUTEROL SO4 HFA INHALER IH SCH ×3 (12:02→22:00)
[2021-03-24] MEDS: ROFLUMILAST 500 MCG TABLET PO SCH (12:27)
[2021-03-24] MEDS ORDERED: MAGNESIUM OXIDE 400 MG TABLET (FP) PO ONE (21:23)
[2021-03-24] MEDS: ZOLPIDEM TARTRATE 5 MG TABLET PO PRN (22:04)
[2021-03-24] MEDS: POTASSIUM CHLORIDE TABS 20 MEQ TABLET.ER (FP) PO SCH (22:04)
[2021-03-24] MEDS: MONTELUKAST NA 10 MG TABLET PO SCH (22:05)
[2021-03-25] MEDS: REMDESIVIR 100 MG in SODIUM CHLORIDE 250 ML IVPB SCH ×2 (00:08→23:29)
[2021-03-25] MEDS: PYRIDOSTIGMINE BROMIDE 60 MG TABLET PO SCH ×4 (05:00→21:13)
[2021-03-25] MEDS: LEVOTHYROXINE NA 100 MCG TABLET (FP) PO SCH (06:57)
[2021-03-25] MEDS: ACETAMINOPHEN 500 MG TABLET (FP) PO PRN ×2 (07:03→21:10)
[2021-03-25 09:49] LABS: BLOOD UREA NITROGEN 10.2 mg/dL (7-18)
[2021-03-25 09:52] LABS: CREATININE 0.6 mg/dL (0.55-1.3); MAGNESIUM 1.9 mg/dL (1.8-2.4)
[2021-03-25] MEDS: guaiFENesin 600 MG TABLET.ER (FP) PO SCH ×2 (10:27→21:13)
[2021-03-25] MEDS: CYANOCOBALAMIN 1,000 MCG TABLET (FP) PO SCH (10:27)
[2021-03-25] MEDS: PANTOPRAZOLE 40 MG TABLET PO SCH (10:28)
[2021-03-25] MEDS: MULTIVITAMINS (DAILY MVI) TABLET (FP) PO SCH (10:28)
[2021-03-25] MEDS: DEXAMETHASONE SOD PHOSPHATE 10 MG/1 ML VIAL IVPUSH SCH (10:28)
[2021-03-25] MEDS: LOSARTAN POTASSIUM 50 MG TABLET PO SCH (10:28)
[2021-03-25] MEDS: ESCITALOPRAM OXALATE 10 MG TABLET PO SCH (10:28)
[2021-03-25] MEDS: POTASSIUM CHLORIDE TABS 20 MEQ TABLET.ER (FP) PO SCH ×2 (10:28→21:13)
[2021-03-25] MEDS: VERAPAMIL HCL 120 MG E.R. TABLET PO SCH (10:30)
[2021-03-25] MEDS: ALBUTEROL SO4 HFA INHALER IH SCH ×4 (10:30→21:10)
[2021-03-25] MEDS: ROFLUMILAST 500 MCG TABLET PO SCH (10:30)
[2021-03-25] MEDS: BUDESONIDE/FORMETEROL FUMARATE 160/4.5 mcg INHALER IH SCH ×2 (10:31→21:14)
[2021-03-25] MEDS: FLUTICASONE PROP 0.05% 16 GM NASAL SPRAY NS SCH (11:08)
[2021-03-25] MEDS: MONTELUKAST NA 10 MG TABLET PO SCH (21:13)
[2021-03-25] MEDS: ZOLPIDEM TARTRATE 5 MG TABLET PO PRN (21:24)
[2021-03-26] MEDS: PYRIDOSTIGMINE BROMIDE 60 MG TABLET PO SCH ×4 (03:28→21:45)
[2021-03-26] MEDS: LEVOTHYROXINE NA 100 MCG TABLET (FP) PO SCH (06:00)
[2021-03-26] MEDS: ALBUTEROL SO4 HFA INHALER IH SCH ×4 (08:07→21:00)
[2021-03-26] MEDS: VERAPAMIL HCL 120 MG E.R. TABLET PO SCH (09:28)
[2021-03-26] MEDS: LOSARTAN POTASSIUM 50 MG TABLET PO SCH (09:28)
[2021-03-26] MEDS: POTASSIUM CHLORIDE TABS 20 MEQ TABLET.ER (FP) PO SCH ×2 (09:29→21:44)
[2021-03-26] MEDS: ESCITALOPRAM OXALATE 10 MG TABLET PO SCH (09:29)
[2021-03-26] MEDS: ROFLUMILAST 500 MCG TABLET PO SCH (09:29)
[2021-03-26] MEDS: guaiFENesin 600 MG TABLET.ER (FP) PO SCH ×2 (09:30→21:44)
[2021-03-26] MEDS: CYANOCOBALAMIN 1,000 MCG TABLET (FP) PO SCH (09:31)
[2021-03-26] MEDS: MULTIVITAMINS (DAILY MVI) TABLET (FP) PO SCH (09:31)
[2021-03-26] MEDS: PANTOPRAZOLE 40 MG TABLET PO SCH (09:31)
[2021-03-26] MEDS: DEXAMETHASONE SOD PHOSPHATE 10 MG/1 ML VIAL IVPUSH SCH (09:33)
[2021-03-26] MEDS: BUDESONIDE/FORMETEROL FUMARATE 160/4.5 mcg INHALER IH SCH ×2 (09:33→21:45)
[2021-03-26 09:34] LABS: BASO % 0.2 % (0-2.0); HEMATOCRIT 37.3 % (35.4-49); HEMOGLOBIN 12.8 GM/dL (11.7-16.9); LYMPH % 16.4 % (8-40); MCH 30.8 pg (25.7-33.7); MCHC 34.3 g/dl (32.0-35.9); MEAN CELL VOLUME 89.7 fl (80-96); MEAN PLT VOLUME 7.1 fl (7.5-11.1); MONO % 4.6 % (3.8-10.2); NEUT % 78.8 % (42.8-82.8); PLATELET COUNT 401 10^3/uL (134-434); RBC 4.16 M/mm3 (4.00-5.60); RDW 14.4 % (11.9-15.9)
[2021-03-26] MEDS: FLUTICASONE PROP 0.05% 16 GM NASAL SPRAY NS SCH (09:34)
[2021-03-26 09:57] LABS: BLOOD UREA NITROGEN 8.8 mg/dL (7-18); CALCIUM 7.8 mg/dL (8.5-10.1)
[2021-03-26 10:00] LABS: CREATININE 0.6 mg/dL (0.55-1.3)
[2021-03-26] MEDS: MONTELUKAST NA 10 MG TABLET PO SCH (21:44)
[2021-03-26] MEDS: ACETAMINOPHEN 500 MG TABLET (FP) PO PRN (21:44)
[2021-03-26] MEDS: ZOLPIDEM TARTRATE 5 MG TABLET PO PRN (21:45)
[2021-03-27] MEDS: REMDESIVIR 100 MG in SODIUM CHLORIDE 250 ML IVPB SCH ×2 (01:00→23:21)
[2021-03-27] MEDS: PYRIDOSTIGMINE BROMIDE 60 MG TABLET PO SCH ×4 (04:56→21:15)
[2021-03-27] MEDS: LEVOTHYROXINE NA 100 MCG TABLET (FP) PO SCH (06:38)
[2021-03-27] MEDS: guaiFENesin 600 MG TABLET.ER (FP) PO SCH ×2 (09:40→21:15)
[2021-03-27] MEDS: CYANOCOBALAMIN 1,000 MCG TABLET (FP) PO SCH (09:40)
[2021-03-27] MEDS: LOSARTAN POTASSIUM 50 MG TABLET PO SCH (09:40)
[2021-03-27] MEDS: MULTIVITAMINS (DAILY MVI) TABLET (FP) PO SCH (09:40)
[2021-03-27] MEDS: PANTOPRAZOLE 40 MG TABLET PO SCH (09:40)
[2021-03-27] MEDS: POTASSIUM CHLORIDE TABS 20 MEQ TABLET.ER (FP) PO SCH ×2 (09:40→21:15)
[2021-03-27] MEDS: ESCITALOPRAM OXALATE 10 MG TABLET PO SCH (09:40)
[2021-03-27] MEDS: DEXAMETHASONE SOD PHOSPHATE 10 MG/1 ML VIAL IVPUSH SCH (09:41)
[2021-03-27] MEDS: VERAPAMIL HCL 120 MG E.R. TABLET PO SCH (09:42)
[2021-03-27] MEDS: ROFLUMILAST 500 MCG TABLET PO SCH (09:42)
[2021-03-27] MEDS: BUDESONIDE/FORMETEROL FUMARATE 160/4.5 mcg INHALER IH SCH ×2 (09:47→21:31)
[2021-03-27] MEDS: FLUTICASONE PROP 0.05% 16 GM NASAL SPRAY NS SCH (09:49)
[2021-03-27 09:55] LABS: BASO % 0.2 % (0-2.0); EOS % 0.1 % (0-4.5); HEMATOCRIT 38.3 % (35.4-49); HEMOGLOBIN 12.9 GM/dL (11.7-16.9); LYMPH % 17.6 % (8-40); MCH 30.4 pg (25.7-33.7); MCHC 33.6 g/dl (32.0-35.9); MEAN CELL VOLUME 90.5 fl (80-96); MONO % 8.8 % (3.8-10.2); NEUT % 73.3 % (42.8-82.8); PLATELET COUNT 529 10^3/uL (134-434); RBC 4.23 M/mm3 (4.00-5.60); RDW 14.5 % (11.9-15.9); WHITE BLOOD COUNT 5.2 K/mm3 (4.0-10.0)
[2021-03-27] MEDS: ALBUTEROL SO4 HFA INHALER IH SCH ×4 (10:04→21:32)
[2021-03-27 10:07] LABS: CALCIUM 8.3 mg/dL (8.5-10.1)
[2021-03-27 10:08] LABS: BLOOD UREA NITROGEN 16.9 mg/dL (7-18)
[2021-03-27 10:11] LABS: CREATININE 0.6 mg/dL (0.55-1.3)
[2021-03-27] MEDS ORDERED: ZOLPIDEM TARTRATE 5 MG TABLET PO ONE (20:11)
[2021-03-27] MEDS: MONTELUKAST NA 10 MG TABLET PO SCH (21:15)
[2021-03-28] MEDS: PYRIDOSTIGMINE BROMIDE 60 MG TABLET PO SCH ×4 (05:18→21:05)
[2021-03-28] MEDS: LEVOTHYROXINE NA 100 MCG TABLET (FP) PO SCH (06:13)
[2021-03-28 09:13] LABS: BASO % 0.1 % (0-2.0); HEMATOCRIT 38.5 % (35.4-49); HEMOGLOBIN 12.9 GM/dL (11.7-16.9); LYMPH % 12.9 % (8-40); MCH 30.5 pg (25.7-33.7); MCHC 33.4 g/dl (32.0-35.9); MEAN PLT VOLUME 6.8 fl (7.5-11.1); MONO % 9.3 % (3.8-10.2); NEUT % 77.7 % (42.8-82.8); PLATELET COUNT 533 10^3/uL (134-434); RBC 4.23 M/mm3 (4.00-5.60); RDW 14.7 % (11.9-15.9); WHITE BLOOD COUNT 6.2 K/mm3 (4.0-10.0)
[2021-03-28 09:40] LABS: BLOOD UREA NITROGEN 18.2 mg/dL (7-18)
[2021-03-28 09:43] LABS: CALCIUM 8.8 mg/dL (8.5-10.1)
[2021-03-28 09:44] LABS: CREATININE 0.7 mg/dL (0.55-1.3)
[2021-03-28] MEDS: ALBUTEROL SO4 HFA INHALER IH SCH ×5 (10:11→20:42)
[2021-03-28] MEDS: LOSARTAN POTASSIUM 50 MG TABLET PO SCH (10:12)
[2021-03-28] MEDS: VERAPAMIL HCL 120 MG E.R. TABLET PO SCH (10:12)
[2021-03-28] MEDS: ROFLUMILAST 500 MCG TABLET PO SCH (10:12)
[2021-03-28] MEDS: DEXAMETHASONE SOD PHOSPHATE 10 MG/1 ML VIAL IVPUSH SCH (10:13)
[2021-03-28] MEDS: FLUTICASONE PROP 0.05% 16 GM NASAL SPRAY NS SCH (10:13)
[2021-03-28] MEDS: POTASSIUM CHLORIDE TABS 20 MEQ TABLET.ER (FP) PO SCH ×2 (10:13→21:04)
[2021-03-28] MEDS: ESCITALOPRAM OXALATE 10 MG TABLET PO SCH (10:14)
[2021-03-28] MEDS: BUDESONIDE/FORMETEROL FUMARATE 160/4.5 mcg INHALER IH SCH ×2 (10:15→21:05)
[2021-03-28] MEDS: guaiFENesin 600 MG TABLET.ER (FP) PO SCH ×2 (10:15→21:04)
[2021-03-28] MEDS: PANTOPRAZOLE 40 MG TABLET PO SCH (10:15)
[2021-03-28] MEDS: CYANOCOBALAMIN 1,000 MCG TABLET (FP) PO SCH (10:16)
[2021-03-28] MEDS: MULTIVITAMINS (DAILY MVI) TABLET (FP) PO SCH (10:16)
[2021-03-28] MEDS: ACETAMINOPHEN 325 MG TABLET (FP) PO SCH (12:33)
[2021-03-28] MEDS: IMMUNE GLOBULIN (IgG) 20 GM VIAL IVPB SCH (13:24)
[2021-03-28] MEDS: LOPERAMIDE HCL 2 MG CAPSULE PO PRN ×2 (16:36→21:04)
[2021-03-28] MEDS: MONTELUKAST NA 10 MG TABLET PO SCH (21:04)
[2021-03-28] MEDS: ZOLPIDEM TARTRATE 5 MG TABLET PO PRN (22:04)
[2021-03-29] MEDS: PYRIDOSTIGMINE BROMIDE 60 MG TABLET PO SCH ×4 (04:00→21:44)
[2021-03-29] MEDS: LEVOTHYROXINE NA 100 MCG TABLET (FP) PO SCH (06:06)
[2021-03-29] MEDS: ALBUTEROL SO4 HFA INHALER IH SCH ×4 (10:00→21:44)
[2021-03-29] MEDS: ACETAMINOPHEN 325 MG TABLET (FP) PO SCH (10:00)
[2021-03-29] MEDS: CYANOCOBALAMIN 1,000 MCG TABLET (FP) PO SCH (10:01)
[2021-03-29] MEDS: LOSARTAN POTASSIUM 50 MG TABLET PO SCH (10:01)
[2021-03-29] MEDS: POTASSIUM CHLORIDE TABS 20 MEQ TABLET.ER (FP) PO SCH ×2 (10:01→21:43)
[2021-03-29] MEDS: guaiFENesin 600 MG TABLET.ER (FP) PO SCH ×2 (10:01→21:43)
[2021-03-29] MEDS: MULTIVITAMINS (DAILY MVI) TABLET (FP) PO SCH (10:01)
[2021-03-29] MEDS: VERAPAMIL HCL 120 MG E.R. TABLET PO SCH (10:02)
[2021-03-29] MEDS: ESCITALOPRAM OXALATE 10 MG TABLET PO SCH (10:02)
[2021-03-29] MEDS: DEXAMETHASONE SOD PHOSPHATE 10 MG/1 ML VIAL IVPUSH SCH (10:02)
[2021-03-29] MEDS: PANTOPRAZOLE 40 MG TABLET PO SCH (10:02)
[2021-03-29] MEDS: BUDESONIDE/FORMETEROL FUMARATE 160/4.5 mcg INHALER IH SCH ×2 (10:03→21:44)
[2021-03-29] MEDS: ROFLUMILAST 500 MCG TABLET PO SCH (10:03)
[2021-03-29] MEDS: FLUTICASONE PROP 0.05% 16 GM NASAL SPRAY NS SCH (10:03)
[2021-03-29 10:08] LABS: BLOOD UREA NITROGEN 19.2 mg/dL (7-18); CALCIUM 8.5 mg/dL (8.5-10.1)
[2021-03-29 10:12] LABS: CREATININE 0.7 mg/dL (0.55-1.3)
[2021-03-29] MEDS: LOPERAMIDE HCL 2 MG CAPSULE PO PRN ×2 (11:47→21:48)
[2021-03-29] MEDS: IMMUNE GLOBULIN (IgG) 20 GM VIAL IVPB SCH (12:10)
[2021-03-29] MEDS: ZOLPIDEM TARTRATE 5 MG TABLET PO PRN (21:43)
[2021-03-29] MEDS: MONTELUKAST NA 10 MG TABLET PO SCH (21:43)
[2021-03-30] MEDS: PYRIDOSTIGMINE BROMIDE 60 MG TABLET PO SCH ×4 (04:57→21:25)
[2021-03-30] MEDS: LEVOTHYROXINE NA 100 MCG TABLET (FP) PO SCH (06:12)
[2021-03-30 10:00] LABS: BASO % 0.2 % (0-2.0); HEMATOCRIT 35.6 % (35.4-49); HEMOGLOBIN 11.8 GM/dL (11.7-16.9); LYMPH % 13.5 % (8-40); MCH 30.3 pg (25.7-33.7); MCHC 33.2 g/dl (32.0-35.9); MEAN CELL VOLUME 91.3 fl (80-96); MEAN PLT VOLUME 6.9 fl (7.5-11.1); MONO % 11.9 % (3.8-10.2); NEUT % 74.4 % (42.8-82.8); PLATELET COUNT 540 10^3/uL (134-434); RBC 3.89 M/mm3 (4.00-5.60); RDW 14.8 % (11.9-15.9); WHITE BLOOD COUNT 7.8 K/mm3 (4.0-10.0)
[2021-03-30] MEDS: ROFLUMILAST 500 MCG TABLET PO SCH (10:26)
[2021-03-30] MEDS: CYANOCOBALAMIN 1,000 MCG TABLET (FP) PO SCH (10:26)
[2021-03-30] MEDS: guaiFENesin 600 MG TABLET.ER (FP) PO SCH ×2 (10:27→21:21)
[2021-03-30] MEDS: LOSARTAN POTASSIUM 50 MG TABLET PO SCH (10:27)
[2021-03-30] MEDS: ESCITALOPRAM OXALATE 10 MG TABLET PO SCH (10:27)
[2021-03-30] MEDS: MULTIVITAMINS (DAILY MVI) TABLET (FP) PO SCH (10:27)
[2021-03-30] MEDS: PANTOPRAZOLE 40 MG TABLET PO SCH (10:27)
[2021-03-30] MEDS: VERAPAMIL HCL 120 MG E.R. TABLET PO SCH ×2 (10:28→10:49)
[2021-03-30] MEDS: DEXAMETHASONE SOD PHOSPHATE 10 MG/1 ML VIAL IVPUSH SCH (10:28)
[2021-03-30] MEDS: FLUTICASONE PROP 0.05% 16 GM NASAL SPRAY NS SCH (10:28)
[2021-03-30] MEDS: BUDESONIDE/FORMETEROL FUMARATE 160/4.5 mcg INHALER IH SCH ×2 (10:32→22:23)
[2021-03-30] MEDS: ALBUTEROL SO4 HFA INHALER IH SCH ×4 (10:32→21:29)
[2021-03-30] MEDS: POTASSIUM CHLORIDE TABS 20 MEQ TABLET.ER (FP) PO SCH ×2 (10:32→21:22)
[2021-03-30 10:47] LABS: CALCIUM 8.6 mg/dL (8.5-10.1)
[2021-03-30 10:49] LABS: BLOOD UREA NITROGEN 19.5 mg/dL (7-18)
[2021-03-30 10:51] LABS: CREATININE 0.7 mg/dL (0.55-1.3)
[2021-03-30] MEDS: LOPERAMIDE HCL 2 MG CAPSULE PO PRN ×2 (10:55→21:21)
[2021-03-30] MEDS: ACETAMINOPHEN 325 MG TABLET (FP) PO SCH (11:33)
[2021-03-30] MEDS: IMMUNE GLOBULIN (IgG) 20 GM VIAL IVPB SCH (12:02)
[2021-03-30] MEDS: ZOLPIDEM TARTRATE 5 MG TABLET PO PRN (21:21)
[2021-03-30] MEDS: ACETAMINOPHEN 500 MG TABLET (FP) PO PRN (21:22)
[2021-03-30] MEDS: MONTELUKAST NA 10 MG TABLET PO SCH (22:22)
[2021-03-31] MEDS: PYRIDOSTIGMINE BROMIDE 60 MG TABLET PO SCH ×2 (03:55→10:18)
[2021-03-31] MEDS: LEVOTHYROXINE NA 100 MCG TABLET (FP) PO SCH (06:11)
[2021-03-31] MEDS: ALBUTEROL SO4 HFA INHALER IH SCH ×2 (08:17→12:20)
[2021-03-31] MEDS: PANTOPRAZOLE 40 MG TABLET PO SCH (10:17)
[2021-03-31] MEDS: VERAPAMIL HCL 120 MG E.R. TABLET PO SCH (10:17)
[2021-03-31] MEDS: ESCITALOPRAM OXALATE 10 MG TABLET PO SCH (10:17)
[2021-03-31] MEDS: guaiFENesin 600 MG TABLET.ER (FP) PO SCH ×2 (10:17→10:27)
[2021-03-31] MEDS: POTASSIUM CHLORIDE TABS 20 MEQ TABLET.ER (FP) PO SCH ×2 (10:17→10:26)
[2021-03-31] MEDS: FLUTICASONE PROP 0.05% 16 GM NASAL SPRAY NS SCH (10:18)
[2021-03-31] MEDS: BUDESONIDE/FORMETEROL FUMARATE 160/4.5 mcg INHALER IH SCH (10:18)
[2021-03-31] MEDS: LOSARTAN POTASSIUM 50 MG TABLET PO SCH (10:18)
[2021-03-31] MEDS: DEXAMETHASONE SOD PHOSPHATE 10 MG/1 ML VIAL IVPUSH SCH (10:18)
[2021-03-31] MEDS: ROFLUMILAST 500 MCG TABLET PO SCH (10:18)
[2021-03-31] MEDS: LOPERAMIDE HCL 2 MG CAPSULE PO PRN (10:45)
[2021-03-31 15:03] VITALS: BP 131/91; PULSE 102; TEMP 98
== END 2021-03-31 12:46 | disposition home or self-care (01) | DRG 177 ==
LOC: JER 13:54 → JERBED 18:35 → J8W 21:32
PROVIDERS: ADMIT Family Medicine; ATTEND Family Medicine
PROC: XW033E5 Introduction of Remdesivir Anti-infective into Peripheral Vein, Percutaneous Approach, New Technology Group 5 (ICD-10-PCS; principal; 2021-03-24)
DX: U07.1 COVID-19 (principal); J12.82 Pneumonia due to coronavirus disease 2019; J44.1 Chronic obstructive pulmonary disease with (acute) exacerbation; D80.1 Nonfamilial hypogammaglobulinemia; E27.1 Primary adrenocortical insufficiency; G70.00 Myasthenia gravis without (acute) exacerbation; E03.9 Hypothyroidism, unspecified; I10 Essential (primary) hypertension; G47.33 Obstructive sleep apnea (adult) (pediatric); R09.02 Hypoxemia; N40.0 Benign prostatic hyperplasia without lower urinary tract symptoms; D64.9 Anemia, unspecified
CPT/HCPCS: 36415; 36600; 71045-TC-FY; 71250-TC; 73630-TC-LT; 80048; 80053; 82024; 82533; 82550; 82728; 82803; 83615; 83735; 84443; 84484; 85025; 85379; 86140; 87040; 87070; 87205; 87324; 87449; 93005; 93010; 94660; 94761; 97116-GP; 97161-GP; 99285-25; C9399; C9803; J1100; J1561; U0003; U0005

== ENCOUNTER 2021-11-22 16:38 | Observation (INO) | payer OTHER ==
[2021-11-22 17:15] VITALS: BMI 29.9
[2021-11-22 19:53] LABS: BASO % 0.8 % (0-2.0); EOS % 0.5 % (0-4.5); HEMATOCRIT 28.2 % (35.4-49); HEMOGLOBIN 9.2 GM/dL (11.7-16.9); LYMPH % 7.8 % (8-40); MCH 30.9 pg (25.7-33.7); MCHC 32.4 g/dl (32.0-35.9); MEAN CELL VOLUME 95.2 fl (80-96); MEAN PLT VOLUME 7.1 fl (7.5-11.1); MONO % 7.3 % (3.8-10.2); NEUT % 83.6 % (42.8-82.8); PLATELET COUNT 523 10^3/uL (134-434); RBC 2.97 M/mm3 (4.00-5.60); URINE APPEARANCE CLEAR; URINE BILIRUBIN 1+ (NEGATIVE); URINE COLOR DK YELLOW; URINE GLUCOSE (UA) NEGATIVE (NEGATIVE); URINE KETONE TRACE (NEGATIVE); URINE LEUK ESTERASE NEGATIVE (NEGATIVE); URINE NITRITE NEGATIVE (NEGATIVE); URINE PROTEIN TRACE (NEGATIVE); WHITE BLOOD COUNT 7.8 K/mm3 (4.0-10.0)
[2021-11-22 20:27] LABS: ALBUMIN 3.3 g/dl (3.4-5.0); BLOOD UREA NITROGEN 16.4 mg/dL (7-18)
[2021-11-22 20:30] LABS: CREATININE 1.3 mg/dL (0.55-1.3)
[2021-11-22 20:32] LABS: BILIRUBIN,TOTAL 0.4 mg/dL (0.2-1); TOT PROT 6.7 g/dl (6.4-8.2)
[2021-11-23 07:09] LABS: BASO % 1.2 % (0-2.0); EOS % 1.9 % (0-4.5); HEMATOCRIT 26.6 % (35.4-49); HEMOGLOBIN 8.8 GM/dL (11.7-16.9); LYMPH % 21.8 % (8-40); MCH 31.1 pg (25.7-33.7); MEAN CELL VOLUME 94.3 fl (80-96); MEAN PLT VOLUME 6.9 fl (7.5-11.1); MONO % 10.2 % (3.8-10.2); NEUT % 64.9 % (42.8-82.8); PLATELET COUNT 464 10^3/uL (134-434); RBC 2.82 M/mm3 (4.00-5.60); RDW 16.3 % (11.9-15.9); WHITE BLOOD COUNT 5.7 K/mm3 (4.0-10.0)
[2021-11-23 07:33] LABS: CALCIUM 8.5 mg/dL (8.5-10.1)
[2021-11-23 07:43] LABS: ALBUMIN 3.1 g/dl (3.4-5.0); BILIRUBIN,TOTAL 0.3 mg/dL (0.2-1); TOT PROT 6.2 g/dl (6.4-8.2)
[2021-11-23] MEDS ORDERED: PANTOPRAZOLE 40 MG TABLET PO ONE (08:06)
[2021-11-23] MEDS ORDERED: predniSONE 10 MG TABLET (UD) ONE (08:06)
[2021-11-23] MEDS ORDERED: LOSARTAN POTASSIUM 50 MG TABLET ONE (08:06)
[2021-11-23] MEDS ORDERED: LEVOTHYROXINE NA 88 MCG TABLET (FP) ONE (08:07)
[2021-11-23] MEDS: PANTOPRAZOLE 40 MG TABLET PO SCH (09:30)
[2021-11-23] MEDS: predniSONE 10 MG TABLET (UD) PO SCH (09:30)
[2021-11-23] MEDS: PYRIDOSTIGMINE BROMIDE 60 MG TABLET PO SCH ×4 (09:30→21:41)
[2021-11-23] MEDS: NEBIVOLOL 2.5 MG TABLET (FP) PO SCH (09:30)
[2021-11-23] MEDS: LEVOTHYROXINE NA 88 MCG TABLET (FP) PO SCH (09:38)
[2021-11-23] MEDS: LOSARTAN POTASSIUM 50 MG TABLET PO SCH (10:46)
[2021-11-23] MEDS ORDERED: BUDESONIDE/FORMETEROL FUMARATE 80/4.5 mcg INHALER IH ONE (15:08)
[2021-11-23] MEDS ORDERED: POLYETHYLENE GLYCOL (HEALTHYLAX) 3350 17 GM PACKET ONE (19:16)
[2021-11-23] MEDS: POLYETHYLENE GLYCOL (HEALTHYLAX) 3350 17 GM PACKET PO SCH (19:29)
[2021-11-23] MEDS: MYCOPHENOLATE MOFETIL 250 MG CAPSULE PO SCH (21:17)
[2021-11-23] MEDS ORDERED: ZOLPIDEM TARTRATE 5 MG TABLET PO ONE (21:55)
[2021-11-23] MEDS ORDERED: POLYETHYLENE GLYCOL (HEALTHYLAX) 3350 17 GM PACKET PO SCH (22:00)
[2021-11-23] MEDS ORDERED: ZOLPIDEM TARTRATE 5 MG TABLET ONE (22:07)
[2021-11-24 03:30] VITALS: RESP 18
[2021-11-24 07:31] LABS: BASO % 1.3 % (0-2.0); EOS % 2.5 % (0-4.5); HEMATOCRIT 26.8 % (35.4-49); LYMPH % 17.8 % (8-40); MCH 31.5 pg (25.7-33.7); MCHC 33.5 g/dl (32.0-35.9); NEUT % 68.4 % (42.8-82.8); PLATELET COUNT 460 10^3/uL (134-434); RBC 2.85 M/mm3 (4.00-5.60)
[2021-11-24 07:58] LABS: CALCIUM 8.5 mg/dL (8.5-10.1)
[2021-11-24 07:59] LABS: BLOOD UREA NITROGEN 14.4 mg/dL (7-18)
[2021-11-24 08:02] LABS: CREATININE 0.9 mg/dL (0.55-1.3)
[2021-11-24] MEDS ORDERED: ALBUTEROL SO4 0.083% IH SOL 2.5 MG/3 ML VIAL.NEB. NEB SCH (09:23)
[2021-11-24 09:53] VITALS: BP 101/71; PULSE 94; TEMP 97.8
[2021-11-24] MEDS ORDERED: PANTOPRAZOLE 40 MG TABLET PO ONE (09:54)
[2021-11-24] MEDS ORDERED: POLYETHYLENE GLYCOL (HEALTHYLAX) 3350 17 GM PACKET ONE (09:54)
[2021-11-24] MEDS ORDERED: predniSONE 10 MG TABLET (UD) ONE (09:54)
[2021-11-24] MEDS ORDERED: LOSARTAN POTASSIUM 50 MG TABLET ONE (09:54)
[2021-11-24] MEDS ORDERED: LEVOTHYROXINE NA 50 MCG TABLET (FP) ONE (09:55)
[2021-11-24] MEDS: LEVOTHYROXINE NA 88 MCG TABLET (FP) PO SCH (10:00)
[2021-11-24] MEDS: MYCOPHENOLATE MOFETIL 250 MG CAPSULE PO SCH (10:13)
[2021-11-24] MEDS: NEBIVOLOL 2.5 MG TABLET (FP) PO SCH (10:13)
[2021-11-24] MEDS: PYRIDOSTIGMINE BROMIDE 60 MG TABLET PO SCH (10:14)
[2021-11-24] MEDS: POLYETHYLENE GLYCOL (HEALTHYLAX) 3350 17 GM PACKET PO SCH (10:14)
[2021-11-24] MEDS: predniSONE 10 MG TABLET (UD) PO SCH (10:14)
[2021-11-24] MEDS: PANTOPRAZOLE 40 MG TABLET PO SCH (10:14)
[2021-11-24] MEDS: LOSARTAN POTASSIUM 50 MG TABLET PO SCH (10:14)
== END 2021-11-24 12:23 | disposition home or self-care (01) ==
LOC: JER 16:38 → UNDOADMOB 19:12 → JERBED 19:12 → INTOOBSV 19:12 → JERBED 11-23 16:25
PROVIDERS: ADMIT Family Medicine; ATTEND Family Medicine
PROC: 3E0F7GC Introduction of Other Therapeutic Substance into Respiratory Tract, Via Natural or Artificial Opening (ICD-10-PCS; principal; 2021-11-23)
DX: E27.1 Primary adrenocortical insufficiency (principal); E03.9 Hypothyroidism, unspecified; J44.9 Chronic obstructive pulmonary disease, unspecified; G70.00 Myasthenia gravis without (acute) exacerbation; R31.9 Hematuria, unspecified; G89.29 Other chronic pain; G47.33 Obstructive sleep apnea (adult) (pediatric); D80.1 Nonfamilial hypogammaglobulinemia; J32.9 Chronic sinusitis, unspecified; Z88.2 Allergy status to sulfonamides
CPT/HCPCS: 36415; 71045-TC-FY; 80048; 80053; 81003; 82024; 82533; 82550; 83036; 84443; 84484; 85025; 86140; 87086; 93005; 93010; 94640; 99285-25; C9803-CS; G0378; J7517; U0003; U0005